=== PATIENT | female | born 1935 | race Caucasian/White ===

== ENCOUNTER 2017-04-24 21:52 | Inpatient (IN) ==
[2017-04-24] MEDS ORDERED: HYDROmorphone 2 MG/1 ML VIAL IV STA (22:18)
[2017-04-24] MEDS ORDERED: ONDANSETRON 4 MG/2 ML VIAL ONE (22:18)
[2017-04-24] MEDS ORDERED: ONDANSETRON 4 MG/2 ML VIAL IV STA (22:18)
[2017-04-24] MEDS ORDERED: HYDROmorphone 2 MG/1 ML VIAL ONE (22:18)
--- NOTE | 2017-04-24 22:32 | Emergency Department Note ---
ICathryn Brittany, am scribing for, and in the presence of, Bessy Monreal DO 22: 26. IRah Debra, DO, personally performed the services described in this documentation, ascribed by Hilda Lockett in my presence, and it is both accurate and complete . Arrival - Arrival Chief Complaint: Fall Stated Complaint: FALL ED Nursing Triage Note: C/C fall-right hip and femur pain. Shortening and rotation of right leg noted. Pt brought in by [facility] Mode of Arrival: Stretcher Limitations: No Limitations Source: Patient - History of Present Illness HPI Narrative: This is an 81 y/o white female, who presents to the ED with c/o right hip/femur pain S/P fall which happened 1.5 hours IMPORT COORDINATION AND PRODUCTION HEAD. She notes she slipped on a shoe, tripping over her [id number]. She now complains of right hip and femur pain. She denies hitting any other body part. Pt has no other complaints/ pain in the ED at this time. Pt has a PMHx of Dyslipidemia, CHF, CAD, HTN, and KS. Pt has had a cardiac cath, cholecystectomy, orthopedic surgery, and hysterctomy. Pt denies a family medical Hx. Pt denies a social Hx. Onset (ago): hour(s) (1.5 hours IMPORT COORDINATION AND PRODUCTION HEAD) Consistency: constant Severity: moderate Allergies/Adverse Reactions: Allergies Allergy/AdvReac Type Severity Reaction Status Date / Time No Known Allergies Allergy Unverified 04/24/17 22:03 Home Medications: Home Medications Medication Instructions Recorded Confirmed Type Aspirin 81 mg PO 04/24/17 History Atenolol [Tenormin] 25 mg PO DAILY 04/24/17 04/24/17 History Ezetimibe [Zetia] 10 mg PO DAILY 04/24/17 04/24/17 History Furosemide Tab [Lasix Tab] 20 mg PO DAILY 04/24/17 04/24/17 History Montelukast Tab [Singulair Tab] 10 mg PO DAILY 04/24/17 04/24/17 History Nitroglycerin [Nitroglycerin SL 0.4 mg SL PRN 04/24/17 History Tab] Omeprazole 20 mg PO DAILY 04/24/17 04/24/17 History Ursodiol [Actigall] 300 mg PO BID 04/24/17 04/24/17 History Review of System - Review of System 12 point system: reviewed and no additional remarkable complaints except as stated - Review of System Review of Systems: Fall Musculoskeletal: Present: leg pain (Right femur pain ), other (Right hip pain ) Medical,Surgical,& Family Hx - Medical History Cardio: History of: CHF, CAD, Hypertension, KS (Stent) Endocrine: History of: Dyslipidemia - Surgical History Cardiac Surgeries: Sugical HX of: Cardiac Catheterization Abdominal Surgeries: Surgical HX of: Cholecystectomy Reproductive Surgeries: Surgical HX of;: Hysterectomy Orthopedic Surgeries: Surgical HX of;: Orthopedic Surgery (Bilat Knee replacement) - Social History Smoking Status: Never smoker Frequency of Alcohol Use: None Type of Drug Use: None Exam Vital Signs: Vital Signs Temperature 98.3 F 04/24/17 21:54 Pulse Rate 59 L 04/24/17 21:54 Respiratory Rate 18 04/24/17 21:54 Blood Pressure 167/68 04/24/17 21:54 O2 Sat by Pulse Oximetry 100 04/24/17 21:54 - General General appearance: alert, in distress (Pt is uncomfortable ) - Head Head exam: Present: atraumatic, normocephalic, normal inspection - Eye Eye exam: Present: normal appearance, PERRL, EOMI. Absent: nystagmus - ENT ENT exam: Present: normal exam, mucous membranes moist - Neck Neck exam: Present: normal inspection, full ROM, trachea midline. Absent: tenderness - Chest Chest inspection: Present: normal inspection, symmetric chest wall rise. Absent : tenderness - Respiratory Respiratory exam: Present: normal lung sounds bilaterally. Absent: respiratory distress - Cardiovascular Cardiovascular exam: Present: regular rate, normal rhythm, normal heart sounds. Absent: murmur, rubs, gallop, clicks - Abdominal Exam Abdominal exam: Present: soft, normal bowel sounds. Absent: distention, tenderness, guarding, rebound, rigidity - Rectal Exam Rectal exam: Present: deferred - Extremities Exam Extremities exam: Present: tenderness (Right hip TTP), normal capillary refill, other (There is shortening and rotation of the right leg) - Back Exam Back exam: Present: normal inspection, full ROM. Absent: tenderness, muscle spasm - Neurological Exam Neurological exam: Present: alert, oriented X3, CN II-XII intact. Absent: motor sensory deficit - Psychiatric Psychiatric exam: Present: normal affect, normal mood. Absent: depressed, agitated, anxious, flat affect, manic - Skin Skin exam: Present: warm, dry, intact, normal color. Absent: rash, cyanosis, diaphoresis, erythema, pallor, mottled Course Course Narrative: Spoke with Dr. Dominguez orthopedic surgeon on-call, he will see the patient tomorrow. Spoke with hospitalist he will admit the patient. Due to abnormal chest x-ray we will scan the chest. Results - Labs CBC & BMP: 04/24/17 22:29 04/24/17 22:29 Lab Results: I have reviewed the patients labs - EKG EKG results: interpreted by ALEXANDRO, no acute changes - Diagnostic Findings Procedure: Chest x-ray: image reviewed by me (abnormal , mass noted on the right. ) Disposition Clinical Impression: Fractured hip Case discussed with: patient, patient's family Disposition: Still a Patient Condition: Stable Time of Disposition: 00:02
--- NOTE | 2017-04-24 22:41 | EKG Report ---
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
[2017-04-24 22:45] LABS: Basophils % 0.6 % (0.0-0.8); Eosinophils # 0.1 10*3/uL (0.0-0.87); Eosinophils % 1.9 % (0.00-10.9); Hematocrit 28.1 VOL% (35.7-47.0); Hemoglobin 8.4 GM/DL (12.0-16.0); Immature Granulocytes % 0.8 %; Immature Granulocytes Absolute 0.04 #; Lymphocytes % 18.5 % (21.3-54.2); Mean Corpuscular HGB Conc 29.9 GM/DL (32-36); Mean Corpuscular Hemoglobin 23 PG (27-34); Mean Corpuscular Volume 77.2 FL (87-102); Mean Platelet Volume 12.3 FL (9.6-12.0); Monocytes # 0.5 10*3/uL (0.11-0.8); Monocytes % 10.4 % (1.7-12.7); Neutrophils # 3.5 10*3/uL (1.4-7.4); Neutrophils % 67.8 % (38.7-73.9); Red Blood Count 3.64 MC/CUMM (3.8-5.5); Red Cell Distribution Width 16.9 % (9.3-17.3); White Blood Count 5.2 T/CUMM (4-12)
[2017-04-24 22:48] LABS: Platelet Count 76 T/CUMM (130-400)
[2017-04-24 23:02] LABS: Hypochromasia Slight
[2017-04-24 23:03] LABS: Albumin 2.7 G/DL (3.4-5.0); Bilirubin,Total 0.4 MG/DL (0.2-1.0); Osmolality,Calculated 285.3 MOS/KG (273-304); Platelet Estimate Decreased; Polychromasia Slight; Potassium 4.3 MMOL/L (3.5-5.1); Total Protein 6.6 G/DL (6.4-8.3)
[2017-04-24 23:10] LABS: Apearance,Urine CLEAR (Clear); Bacteria,Urine Occasional /HPF (Few); Bilirubin,Urine Negative (Negative); Blood, Urine Negative (Negative); Calcium 8.1 MG/DL (8.5-10.1); Glucose,Urine (UA) Negative (Negative); Granular Casts,Urine 1 /LPF (0-1); Hyaline Casts,Urine 15 /LPF (0-3); Ketones,Urine Negative (Negative); Mucus,Urine Occasional /LPF (Occasional); Nitrite,Urine Negative (Negative); Protein,Urine Negative; RBC,Urine 1 /HPF (0-4); Squamous Epithelial Cell,Urine Occasional /HPF (0-10); Urine Color Yellow (Yellow); Urine Specific Gravity 1.019 (1.001-1.035); WBC,Urine <1 /HPF (0-6)
--- NOTE | 2017-04-25 00:23 | Hospitalist History & Physical ---
Addendum entered and electronically signed by Codey Patterson NP 04/25/17 01:24: Patient will need follow up with Pulmonary Original Note: Assessment and Plan (1) Fractured hip Status: Acute Current Visit: Yes (2) CAP (community acquired pneumonia) Status: Acute Current Visit: Yes (3) Hypertension, essential Status: Chronic Current Visit: Yes (4) Microcytic anemia Status: Acute Current Visit: Yes (5) CAD (coronary artery disease) Status: Chronic Assessment and plan: 1. Admit to Cardiac monitored bed. Orthopedics consulted with plans for evaluation in am. Prn pain medications Dilaudid. Fall precautions. Routine VS monitoring. NPO after midnight for possible surgery in am. 2. CT scan revealed consolidation in right lower lobe. There have been no signs of PNA, denies cough, afebrile no, chills, no leukocytosis noted however based on the CT scan, the patient will need antibiotics will add Levaquin and repeat of CT scan after antibiotic therapy in several weeks. Blood cultures x 2. Oxygen to maintain O2 sats greater than 92%. Duo nebs as needed. 3. Continue home cardiac medications including antihypertensives, antiplatelet therapy, pain management, patient does have hx of UT with stents, continue ASA and Plavix, Murmur audible upon assessment. continue cardiac monitoring. Monitor H&H will transfuse for HGB less than 7. Strict I&O. 4.Protonix for PUD px and SCD's for DVT px. Will hold on lovenox due to possible surgery in am. Current Visit: Yes History of Present Illness Chief complaint: s/p fall and right hip pain. History of present illness: Ms. Munson is a 81 year old female with past medical history significant for CHF, CAD, HTN, UT with stent that presented to the ED by ambulance after tripping over a shoe and her grand daughter resulting in a falling. The onset of hip pain was around 20:30 today it was acute. The pain has been constant since her fall rating a 10/10 initially now moderate and described as aching in nature, 7/ 10 after receiving several doses of pain medication. The patient denies, syncope , arrhythmias, palpitations, SOB, cough, fever, chills, wheezing, Chest pain, nausea, vomiting, abdominal pain or melena. Chest xray was abnormal revealing a consolidation/mass of the right mainstem and right lower lobe with possible infiltrates, Xray of the hip revealing an obvious fracture. EKG revealed ST with left ventricular hypertrophy, no st elevation. Labs revealed no leukocytosis, microcytic anemia, mild elevation of AST and hyperchloremia. The patient is being admitted to Hospitalist service with cardiac monitoring with Orthopedic consult. Home Medications Medication Instructions Recorded Confirmed Type Aspirin 81 mg PO 04/24/17 History Atenolol [Tenormin] 25 mg PO DAILY 04/24/17 04/24/17 History Ezetimibe [Zetia] 10 mg PO DAILY 04/24/17 04/24/17 History Furosemide Tab [Lasix Tab] 20 mg PO DAILY 04/24/17 04/24/17 History Montelukast Tab [Singulair Tab] 10 mg PO DAILY 04/24/17 04/24/17 History Nitroglycerin [Nitroglycerin SL 0.4 mg SL PRN 04/24/17 History Tab] Omeprazole 20 mg PO DAILY 04/24/17 04/24/17 History Ursodiol [Actigall] 300 mg PO BID 04/24/17 04/24/17 History Allergies Allergy/AdvReac Type Severity Reaction Status Date / Time No Known Allergies Allergy Unverified 04/24/17 22:03 Medical,Surgical,& Family Hx - Medical History Cardio: History of: CHF, CAD, Hypertension, [place] (Stent) Psychological: No history of: Anxiety Disorders, Depression, Violent Behavior Neurology: No history of: Cerebrovascular Accident, TIA, Neurological Problems HEENT: History of: Eye Problem (wears glasses) Endocrine: History of: Dyslipidemia - Surgical History Cardiac Surgeries: Sugical HX of: Cardiac Catheterization Abdominal Surgeries: Surgical HX of: Cholecystectomy Reproductive Surgeries: Surgical HX of;: Hysterectomy Orthopedic Surgeries: Surgical HX of;: Orthopedic Surgery (Bilat Knee replacement) - Family History Family History: Reports;: Family Cancer, Family Diabetes, Family Heart Disease, Family Hypertension - Social History Smoking Status: Never smoker Frequency of Alcohol Use: None Type of Drug Use: None Lives With:: Children Functional capacity: independent ambulation - Constitutional Constitutional: Absent: daytime sleepiness - EENT Eyes: Present: as per HPI Nose, mouth and throat: Absent: hoarseness, sore throat - Cardiovascular Cardiovascular: Present: edema. Absent: chest pain at rest, chest pain with activity, diaphoresis, dyspnea, palpitations - Respiratory Respiratory: Absent: cough, dyspnea, hemoptysis, pain on inspiration - Genitourinary Genitourinary: Absent: dysuria, urinary frequency, urinary hesitancy, urinary incontinence - Musculoskeletal Musculoskeletal: Present: other (positive right hip pain, femur pain and tammy knee replacements ) - Neurological Neurological: Absent: disequilibrium, dizziness - Psychiatric Psychiatric: Present: visual hallucinations. Absent: anxiety, auditory hallucinations, depression - Hematologic/Lymphatic Hematologic/Lymphatic: Absent: easy bleeding Exam - Constitutional Vitals: Period Temp Pulse Resp BP Sys/Vega Pulse Ox Last 24 Hr 98.2 F-98.3 F 59-59 18-18 162-167/68-80 100 General appearance: over weight - Head Head exam: Present: normal inspection - Eye Eye exam: Present: EOMI Pupils: Present: RAQUEL, normal accommodation - ENT ENT exam: Present: normal exam - Neck Neck exam: Present: normal inspection - Respiratory Respiratory exam: Present: clear to auscultation bilaterally - Cardiovascular Cardiovascular exam: Present: regular rate and rhythm, other - GI/Abdominal GI/Abdominal exam: Present: normal bowel sounds. Absent: tenderness - Extremities Exam Extremities exam: Present: normal capillary refill, edema, other (right leg shortened and turned inward.) - Back Exam Back exam: Present: normal inspection - Neurological Exam Neurological exam: Present: oriented X3 - Psychiatric Psychiatric exam: Present: normal affect. Absent: depressed - Skin Skin exam: Present: normal color, dry, intact Results - Labs CBC & BMP: 04/24/17 22:29 04/24/17 22:29 - Diagnostic Findings Procedure: Chest x-ray: image reviewed by me (two areas of consolidation/mass like and possible infiltrates. ), X-ray: image reviewed by me (right hip fracture) Sepsis - Physical Exam Cardiovascular exam: regular rate and rhythm Skin exam: normal color
[2017-04-25] MEDS ORDERED: GLUCAGON 1 MG VIAL IM PRN ×2 (01:03→12:19)
[2017-04-25] MEDS ORDERED: DEXTROSE 50% 25 GM/50 ML SYRINGE IV PRN ×2 (01:03→12:19)
[2017-04-25] MEDS ORDERED: ALBUTEROL/IPRATROPIUM 3 ML NEB RESP TX PRN (01:09)
[2017-04-25] MEDS ORDERED: DOCUSATE SODIUM 100 MG CAPSULE PO PRN (01:09)
[2017-04-25] MEDS ORDERED: HYDROmorphone 2 MG/1 ML VIAL IV PRN ×3 (01:20→13:01)
[2017-04-25] MEDS ORDERED: ONDANSETRON 4 MG/2 ML VIAL ONE ×2 (01:32→12:47)
[2017-04-25] MEDS ORDERED: HYDROmorphone 2 MG/1 ML VIAL IV ONE (01:35)
[2017-04-25] MEDS ORDERED: ONDANSETRON 4 MG/2 ML VIAL IV ONE (01:36)
[2017-04-25] MEDS: LEVOFLOXACIN INJ 750 MG in PREMIX 1 EACH IV SCH (03:41)
[2017-04-25] MEDS: INSULIN LISPRO 100 UNIT/ML SUBCUT SCH ×2 (06:20→12:10)
[2017-04-25] MEDS ORDERED: ceFAZolin 2,000 MG in PREMIX 1 EACH IV ONE (06:33)
--- NOTE | 2017-04-25 06:48 | XRay Report ---
XR femur RT, XR hip 2v w pelvis RT Indication: Pain after falling injury Comparison: None available Findings: There is a comminuted the intratrochanteric fracture of the right hip with distraction and varus angulation. No other acute fracture seen. Knee arthroplasty appears within normal limits. Impression: Femur fracture as described above. PROCEDURE INTERPRETED AT [facility] DEPARTMENT OF RADIOLOGY Final Report Signed by: Dr. Sanket Baker
--- NOTE | 2017-04-25 06:49 | XRay Report ---
XR chest 1V portable Indication: Respiratory preoperative evaluation Comparison: 22 February 2015 Findings: The heart and mediastinum are stable in size and configuration. The pulmonary vascularity is increased with bilateral increased interstitial lung density. No other lung infiltrates, effusions, pneumothorax or other abnormality is demonstrated. Impression: Findings suggest cardiac decompensation. PROCEDURE INTERPRETED AT [facility] DEPARTMENT OF RADIOLOGY Final Report Signed by: Dr. Sanket Baker
[2017-04-25 07:11] LABS: Basophils % 0.5 % (0.0-0.8); Hematocrit 29.7 VOL% (35.7-47.0); Hemoglobin 8.7 GM/DL (12.0-16.0); Immature Granulocytes % 0.5 %; Immature Granulocytes Absolute 0.03 #; Lymphocytes # 0.6 10*3/uL (1.4-4.0); Lymphocytes % 10.6 % (21.3-54.2); Mean Corpuscular HGB Conc 29.3 GM/DL (32-36); Mean Corpuscular Hemoglobin 23 PG (27-34); Monocytes # 0.6 10*3/uL (0.11-0.8); Monocytes % 10.5 % (1.7-12.7); Neutrophils # 4.7 10*3/uL (1.4-7.4); Neutrophils % 77.9 % (38.7-73.9); Red Blood Count 3.81 MC/CUMM (3.8-5.5); Red Cell Distribution Width 16.9 % (9.3-17.3)
[2017-04-25 07:16] LABS: Platelet Count 88 T/CUMM (130-400)
--- NOTE | 2017-04-25 07:16 | Orthopedic Consult Note ---
History of Present Illness Chief complaint: Right hip pain History of present illness: Ms. Munson is a 81 year old female who fell yesterday after tripping over her great granddaughter shoes. She was carrying meat to the refrigerator. She sustained a right displaced intertrochanteric hip fracture. She denies any other injury. She denies any loss of consciousness, chest pain, shortness of breath, weakness, etc. The patient is an independent ambulator. Patient has a history of bilateral total knee replacements which were done approximately 3 years ago by an orthopedist in [place]. The patient has had a CT scan of the chest which demonstrates interstitial fibrosis and a inflammatory nodule in the right lower lobe. She has been placed on antibiotics for a presumptive pneumonia. Home Medications Medication Instructions Recorded Confirmed Type Aspirin 81 mg PO DAILY 04/24/17 04/25/17 History Atenolol [Tenormin] 25 mg PO DAILY 04/24/17 04/25/17 History Ezetimibe [Zetia] 10 mg PO DAILY 04/24/17 04/25/17 History Furosemide Tab [Lasix Tab] 20 mg PO DAILY 04/24/17 04/25/17 History Montelukast Tab [Singulair Tab] 10 mg PO DAILY 04/24/17 04/25/17 History Nitroglycerin [Nitroglycerin SL 0.4 mg SL PRN 04/24/17 History Tab] Omeprazole 20 mg PO DAILY 04/24/17 04/25/17 History Ursodiol [Actigall] 300 mg PO BID 04/24/17 04/25/17 History Allergies Allergy/AdvReac Type Severity Reaction Status Date / Time No Known Allergies Allergy Unverified 04/24/17 22:03 12 point system: reviewed and no additional remarkable complaints except as stated Medical,Surgical,& Family Hx - Medical History Cardio: History of: CHF, CAD, Hypertension, PR (Stent) Psychological: No history of: Anxiety Disorders, Depression, Violent Behavior Neurology: No history of: Cerebrovascular Accident, TIA, Neurological Problems HEENT: History of: Eye Problem (wears glasses) Endocrine: History of: Dyslipidemia - Surgical History Cardiac Surgeries: Sugical HX of: Cardiac Catheterization Abdominal Surgeries: Surgical HX of: Cholecystectomy Reproductive Surgeries: Surgical HX of;: Hysterectomy Orthopedic Surgeries: Surgical HX of;: Orthopedic Surgery (Bilat Knee replacement) - Family History Family History: Reports;: Family Cancer, Family Diabetes, Family Heart Disease, Family Hypertension - Social History Smoking Status: Never smoker Frequency of Alcohol Use: None Type of Drug Use: None Exam - Constitutional Vitals: Period Temp Pulse Resp BP Sys/Vega Pulse Ox Last 24 Hr 97.1 F-98.3 F 59-81 18-18 94-167/58-80 95-100 Alert and oriented. Bilateral upper extremities and left lower extremity without deformity. Right lower extremity is shortened and externally rotated. 2+ dorsalis pedis pulse. Capillary refill is less than 2 seconds. Sensations intact to her first dorsal webspace, plantar and dorsal aspects of her foot. The patient can flex and extend her toes and ankles. Radiographs pelvis, hip and femur were reviewed. They demonstrate a displaced three-part intertrochanteric hip fracture. She has well fixed right total knee replacement. Impression: Right intertrochanteric hip fracture, displaced Plan: I have recommended open reduction fixation of her right hip. Risks, benefits and postoperative course were discussed. Risks include but not limited to infection, bleeding, anesthesia, thromboembolic event, , failure of fixation, need for further operation, etc. Unfortunately, I am going to be unavailable. I have asked Dr. Efren Woods to assume her care. Results - Labs CBC & BMP: 04/24/17 22:29 04/24/17 22:29
[2017-04-25 07:35] LABS: Hypochromasia 1+; Microcytosis 1+; Platelet Estimate Decreased; Tear Drop Cells Slight
[2017-04-25 07:44] LABS: % Iron Saturation 8.1 % (18-50); Ferritin 15.3 ng/ml (8-252)
[2017-04-25 07:46] LABS: Folate > 24.0 NG/ML (5.4-24.0); Vitamin B12 700 PG/ML (211-911)
[2017-04-25 07:50] LABS: Calcium 8.6 MG/DL (8.5-10.1); Osmolality,Calculated 282.7 MOS/KG (273-304); Potassium 4.9 MMOL/L (3.5-5.1); Risk Ratio 1.92; Thyroid Stimulating Hormone 13.6 uIU/ml (0.358-3.74)
--- NOTE | 2017-04-25 08:02 | CT Report ---
CT chest w con Indication: Chest mass Comparison: Chest x-ray 24 April 2017 Technique: Axial CT imaging of the chest was done at 3 mm intervals with intravenous contrast. Contrast dose was 80 cc Omnipaque 350. Findings: There is a prominent interstitial pulmonary densities in both lower lungs. The pulmonary vessel caliber are slightly increased. There is a nodular area of ill-defined airspace density in the right lower lobe measuring up to 1.1 cm in size. Remaining lungs show no evidence of infiltrates or airspace disease. No nodule or mass is identified. No effusion or pneumothorax is seen. The heart, mediastinum and great vessels appear within normal limits. No other abnormality is identified. Impression: Prominent pulmonary vascularity and interstitial pulmonary densities could indicate cardiac decompensation. Small amount of nodular airspace density in the right lower lobe adjacent to the major fissure 1.1 cm in size, could indicate inflammatory process. Follow-up CT after treatment is recommended. This CT exam was performed using one or more the following dose reduction techniques: Automated exposure control, adjustment of the MA and/or KV according to patient size, or use of iterative reconstruction technique. PROCEDURE INTERPRETED AT [facility] DEPARTMENT OF RADIOLOGY Final Report Signed by: Dr. Sanket Baker
--- NOTE | 2017-04-25 08:46 | Orthopedic Progress Note ---
Orthopedics - Subjective Interval history: Patient seen in Dr. Dominguez's absence reportedly ambulatory with displaced inotrope fracture of the right hip I discussed with she and her family present the diagnosis and treatment recommendations including need for operative stabilization will plan on internal fixation later today of her right hip all questions were answered she appears understand and agrees with the plan. Exam - Constitutional Vitals: Period Temp Pulse Resp BP Sys/Vega Pulse Ox Last 24 Hr 96.9 F-98.3 F 59-81 18-18 94-167/58-80 95-100 Results - Labs CBC & BMP: 04/25/17 06:56 04/25/17 06:56
[2017-04-25] MEDS: ATENOLOL 25 MG TABLET PO SCH (08:51)
[2017-04-25] MEDS: PANTOPRAZOLE 40 MG TABLET PO SCH (09:05)
[2017-04-25] MEDS: EZETIMIBE 10 MG TABLET PO SCH (09:05)
[2017-04-25] MEDS: FUROSEMIDE 20 MG TABLET PO SCH (09:05)
[2017-04-25] MEDS: MONTELUKAST 10 MG TABLET PO SCH (09:05)
[2017-04-25] MEDS ORDERED: PROMETHAZINE 25 MG/1 ML VIAL IM PRN (12:21)
[2017-04-25] MEDS ORDERED: LACTULOSE 20 GM/30 ML UDCUP PO PRN (12:21)
[2017-04-25] MEDS ORDERED: BISACODYL 10 MG SUPP RECTAL PRN (12:21)
--- NOTE | 2017-04-25 12:41 | Anesthesia Post-Op ---
Anesthesia Post OP - Post Ansesthetic Evaluation Patient seen in post op: Yes Resp: within normal limits CV: within normal limits Mental: within normal limits Temp: within normal limits [id number]: within normal limits Nausea and Vomiting: within normal limits Pain: within normal limits
[2017-04-25] MEDS ORDERED: fentaNYL 100 MCG/2 ML VIAL ONE (12:46)
[2017-04-25] MEDS ORDERED: PROPOFOL 200 MG/20 ML VIAL IV ONE (12:46)
[2017-04-25] MEDS ORDERED: DEXAMETHASONE 10 MG/1 ML VIAL ONE (12:46)
[2017-04-25] MEDS ORDERED: SEVOFLURANE 1 UNIT/15 MINUTE INH ONE (12:46)
--- NOTE | 2017-04-25 12:46 | Hospitalist Progress Note ---
Assessment and Plan (1) Closed right hip fracture Status: Acute Assessment and plan: Orthopedics consult noted. Operative intervention planned for today. Current Visit: Yes Qualifiers: Encounter type: initial encounter Qualified Code(s): S72.001A - Fracture of unspecified part of neck of right femur, initial encounter for closed fracture (2) Hypertension, essential Status: Chronic Current Visit: Yes (3) CAD (coronary artery disease) Status: Chronic Current Visit: Yes (4) Microcytic anemia Status: Chronic Current Visit: Yes (5) Abnormal chest x-ray Status: Acute Assessment and plan: No evidence of pneumonia on CAT scan. CAT scan report shows: Prominent pulmonary vascularity and interstitial pulmonary densities could indicate cardiac decompensation. Small amount of nodular airspace density in the right lower lobe adjacent to the major fissure 1.1 cm in size, could indicate inflammatory process. Follow-up CT after treatment is recommended. Current Visit: Yes Hospitalist: Subjective Interval history: Patient seen and examined. No acute events overnight. Case discussed with nursing staff. Labs reviewed. Operative intervention planned for today. Exam - Constitutional Vitals: Period Temp Pulse Resp BP Sys/Vega Pulse Ox Last 24 Hr 96.9 F-98.3 F 59-81 18-18 94-167/58-80 95-100 Exam: Constitutional System: No distress. No tremulousness. Head: Normocephalic, atraumatic. Ears, Nose and Throat System: No pain or tenderness. No epistaxis or discharge Eyes System: Pupils equal, round, and reactive. Extraocular muscles intact. Neck: Supple, without adenopathy, No jugular venous distention. No thyromegaly, neck mass, or prior surgery apparent. Respiratory System: Chest clear to auscultation. Cardiovascular System: Heart with regular rate and rhythm. No murmur. GI System: Abdomen soft, nontender. Normo active bowel sounds present. Musculoskeletal System: limbs with no pedal edema. Full distal pulses. Normal capillary refill. External rotation of the right lower extremity noted Neurological System: No discernable sensory deficit. No aphasia Psychiatric System: Conversation is rational Results - Labs CBC & BMP: 04/25/17 06:56 04/25/17 06:56 Lab Results: I have reviewed the past 24 hour labs Quality Measures - VTE Contraindication to Pharmacological VTE Prophylaxis: Extremities with Hemorrhage
[2017-04-25] MEDS ORDERED: SUCCINYLCHOLINE 200 MG/10 ML VIAL ONE (12:47)
[2017-04-25] MEDS ORDERED: SODIUM CHLORIDE 0.9% 100 ML IV ONE (12:47)
[2017-04-25] MEDS ORDERED: PHENYLEPHRINE 50 MG/5 ML VIAL ONE (12:47)
[2017-04-25 12:49] LABS: Basophils # 0.1 10*3/uL (0.0-0.2); Basophils % 0.6 % (0.0-0.8); Hemoglobin 8.2 GM/DL (12.0-16.0); Immature Granulocytes % 0.7 %; Immature Granulocytes Absolute 0.06 #; Lymphocytes # 1.5 10*3/uL (1.4-4.0); Lymphocytes % 16.3 % (21.3-54.2); Mean Corpuscular HGB Conc 29.3 GM/DL (32-36); Mean Corpuscular Hemoglobin 23 PG (27-34); Mean Corpuscular Volume 78.7 FL (87-102); Mean Platelet Volume 12.1 FL (9.6-12.0); Monocytes # 1.1 10*3/uL (0.11-0.8); Monocytes % 12.3 % (1.7-12.7); Neutrophils # 6.3 10*3/uL (1.4-7.4); Neutrophils % 70.1 % (38.7-73.9); Red Blood Count 3.56 MC/CUMM (3.8-5.5)
[2017-04-25 12:50] LABS: Platelet Count 109 T/CUMM (130-400); White Blood Count 8.9 T/CUMM (4-12)
--- NOTE | 2017-04-25 12:56 | XRay Report ---
History: ORIF right hip Date: 04/25/2017 Study: 2 views right hip performed in surgery Comparison exam: 04/24/2017 Compression screw and plate stabilize the intertrochanteric fracture right hip with relatively good alignment and positioning. 39.6 seconds fluoroscopy time was utilized. 4 fluoroscopic images were captured and archived. Impression: Relatively good alignment and positioning of the intertrochanteric fracture right hip following ORIF PROCEDURE INTERPRETED AT [facility] DEPARTMENT OF RADIOLOGY Final Report Signed by: Dr. Debora Marcial
[2017-04-25] MEDS ORDERED: ONDANSETRON 4 MG/2 ML VIAL IV PRN (13:01)
[2017-04-25] MEDS ORDERED: LACTATED RINGERS 1,000 ML IV SCH (13:30)
[2017-04-25] MEDS: INSULIN REGULAR 100 UNIT/ML SUBCUT SCH ×2 (16:06→21:46)
[2017-04-25] MEDS ORDERED: SODIUM CHLORIDE 0.9% 250 ML IV PRN (17:55)
--- NOTE | 2017-04-25 17:55 | Orthopedic Progress Note ---
Orthopedics - Subjective Interval history: Comfortable postop discussed operative findings and plan going forward for PT. Hemoglobin is 8.T postoperatively I expected to be at least in the sevens tomorrow given intraoperative blood loss. I discussed with her and recommended 2 units of PRBC slowly through the evening related to her perioperative blood loss anemia will check her H&H in the a.m. she appears to understand and agrees Exam - Constitutional Vitals: Period Temp Pulse Resp BP Sys/Vega Pulse Ox Last 24 Hr 96.9 F-99.5 F 59-85 16-22 90-167/42-80 95-100 Results - Labs CBC & BMP: 04/25/17 12:43 04/25/17 06:56 Quality Measures - VTE Contraindication to Pharmacological VTE Prophylaxis: Extremities with Hemorrhage
[2017-04-25 19:39] LABS: Anisocytosis 1+; Hypochromasia Slight; Poikilocytosis 1+; Tear Drop Cells Few
[2017-04-25 19:40] LABS: Burr Cells Few; Platelet Estimate Decreased
[2017-04-26] MEDS: LEVOFLOXACIN INJ 750 MG in PREMIX 1 EACH IV SCH (05:18)
[2017-04-26 07:11] LABS: Basophils % 0.3 % (0.0-0.8); Hematocrit 27.8 VOL% (35.7-47.0); Hemoglobin 8.7 GM/DL (12.0-16.0); Immature Granulocytes % 0.5 %; Immature Granulocytes Absolute 0.05 #; Lymphocytes # 1.6 10*3/uL (1.4-4.0); Lymphocytes % 17.6 % (21.3-54.2); Mean Corpuscular HGB Conc 31.3 GM/DL (32-36); Mean Corpuscular Hemoglobin 25 PG (27-34); Mean Corpuscular Volume 79.4 FL (87-102); Mean Platelet Volume 11.7 FL (9.6-12.0); Monocytes # 1.2 10*3/uL (0.11-0.8); Monocytes % 13.4 % (1.7-12.7); Neutrophils # 6.3 10*3/uL (1.4-7.4); Neutrophils % 68.2 % (38.7-73.9); Red Cell Distribution Width 17.2 % (9.3-17.3); White Blood Count 9.2 T/CUMM (4-12)
[2017-04-26 07:13] LABS: Platelet Count 93 T/CUMM (130-400)
[2017-04-26 07:35] LABS: Giant Platelets Few; Hypochromasia 1+; Microcytosis Slight; Ovalocytes Slight; Platelet Estimate Decreased
[2017-04-26] MEDS: INSULIN REGULAR 100 UNIT/ML SUBCUT SCH ×4 (07:35→21:05)
[2017-04-26] MEDS: FUROSEMIDE 20 MG TABLET PO SCH (08:39)
[2017-04-26] MEDS: ASPIRIN CHEW 81 MG TABLET PO SCH (08:39)
[2017-04-26] MEDS: ATENOLOL 25 MG TABLET PO SCH (08:39)
[2017-04-26] MEDS: PANTOPRAZOLE 40 MG TABLET PO SCH (08:39)
[2017-04-26] MEDS: MONTELUKAST 10 MG TABLET PO SCH (08:39)
[2017-04-26] MEDS: EZETIMIBE 10 MG TABLET PO SCH (08:39)
[2017-04-26] MEDS ORDERED: BENZOCAINE/MENTHOL LOZENGE 18/BOX PO PRN (12:20)
--- NOTE | 2017-04-26 12:28 | Hospitalist Progress Note ---
Hospitalist: Subjective Interval history: Patient states that she has pain. Pain medications are helpful. She states that she has trouble swallowing and contributes it to the recent ET tube. She denies any SOB or CP. Exam - Constitutional Vitals: Period Temp Pulse Resp BP Sys/Vega Pulse Ox Last 24 Hr 96.6 F-99.5 F 64-85 16-22 90-129/42-79 92-100 General appearance: no acute distress, morbidly obese - Head Head exam: Present: normal inspection - Eye Eye exam: Present: EOMI Pupils: Present: RAQUEL - Respiratory Respiratory exam: Present: clear to auscultation bilaterally. Absent: rales, rhonchi, wheezes - Cardiovascular Cardiovascular exam: Present: regular rate and rhythm - GI/Abdominal GI/Abdominal exam: Present: normal bowel sounds, soft. Absent: tenderness - Extremities Exam Extremities exam: Absent: edema (s/p right hip fracture; bandages in place) - Neurological Exam Neurological exam: Present: alert, oriented X3 - Psychiatric Psychiatric exam: Present: normal affect, normal mood - Skin Skin exam: Present: normal color, warm Results - Labs CBC & BMP: 04/26/17 06:27 04/25/17 06:56 - Impressions Active issues: 1. Close right hip fracture s/p surgery 2. HTN: blood pressures are on the low side 3. ASCAD: stable; on asa and statin 4. Iron deficiency anemia, ferritin 15.3. 5. Abnormal chest CT: it showed possible cardiac decompensation and nodular airspace density in RLL; f/u CT is needed 6. dysphagia 7. Thrombocytopenia: stable (88-109) Plan: pain control; monitor h/h; monitor bp and give colloid/crystalloid as needed; hold atenolol and lasix; start venofer; will need outpatient GI work up ; f/u chest CT in 3 months; obtain echo; soft diet; consult speech; PT/OT Quality Measures - VTE Contraindication to Pharmacological VTE Prophylaxis: Extremities with Hemorrhage
--- NOTE | 2017-04-26 12:32 | Orthopedic Progress Note ---
Orthopedics - Subjective Interval history: Comfortable hemoglobin 8.7 today did not do very well with PT only up to side of the bed. Most likely will need rehab or swing bed placement early next week will follow H&H check it again in the a.m. Exam - Constitutional Vitals: Period Temp Pulse Resp BP Sys/Vega Pulse Ox Last 24 Hr 96.6 F-99.5 F 64-76 16-22 90-129/42-79 92-100 Results - Labs CBC & BMP: 04/26/17 06:27 04/25/17 06:56 Quality Measures - VTE Contraindication to Pharmacological VTE Prophylaxis: Extremities with Hemorrhage
--- NOTE | 2017-04-26 16:59 | ECHO Report ---
[place], [place] Exam Date: 04/26/2017 13:12 Referring Physician: Technologist: Viviana Schwarz Age: 81 Ht (in): 62 Wt (lb): 210 Gender: F Exam Location: [facility] Echo Indications: LT. hip fracture, pneumonia, HTN, CAD BP: 107 / 59 HR: 70 Rhythm: Sinus Technical Quality: Fair IMPRESSIONS Normal left ventricular cavity size. Mild - moderate concentric left ventricular hypertrophy with diastolic dysfunction. Left ventricular ejection fraction is estimated at 55-60 %. Normal right ventricular size. Normal right atrial size. Moderately increased left atrial size. Mildly thickened mitral valve with mild mitral regurgitation. Mild aortic valve stenosis. Aortic valve area is 1.3 cm. Aortic valve mean gradient is 24 mmHg. Trace to mild aortic valve regurgitation. Morphologically normal tricuspid valve. Trace tricuspid valve regurgitation. Tricuspid regurgitation velocities suggest a PAP of 29.8 mmHg + RAP. Morphologically normal pulmonic valve. No pericardial effusion. Normal size aortic root and proximal ascending aorta. MEASUREMENTS (Male / Female) Normal Values 2D ECHO LV Diastolic Diameter PLAX 3.3 cm 4.2 - 5.9 / 3.9 - 5.3 cm LV Systolic Diameter PLAX 1.8 cm LV Fractional Shortening PLAX 43.4 % IVS Diastolic Thickness 1.3 cm 0.6 - 1.0 / 0.6 - 0.9 cm LVPW Diastolic Thickness 1.2 cm 0.6 - 1.0 / 0.6 - 0.9 cm Aortic Root Diameter 2.5 cm LA Systolic Diameter LX 5.2 cm 3.0 - 4.0 / 2.7 - 3.8 cm DOPPLER TR Peak Velocity 273.0 cm/s TR Peak Gradient 29.8 mmHg FINDINGS Left Ventricle Normal left ventricular cavity size. Mild - moderate concentric left ventricular hypertrophy with diastolic dysfunction. Left ventricular ejection fraction is estimated at 55-60 %. Right Ventricle Normal right ventricular size. Right Atrium Normal right atrial size. Left Atrium Moderately increased left atrial size. Mitral Valve Mildly thickened mitral valve with mild mitral regurgitation. Aortic Valve Mild aortic valve stenosis. Aortic valve area is 1.3 cm. Aortic valve mean gradient is 24 mmHg. Trace to mild aortic valve regurgitation. Tricuspid Valve Morphologically normal tricuspid valve. Trace tricuspid valve regurgitation. Tricuspid regurgitation velocities suggest a PAP of 29.8 mmHg + RAP. Pulmonic Valve Morphologically normal pulmonic valve. Pericardium No pericardial effusion. Aorta Normal size aortic root and proximal ascending aorta. Oneil Cao MD (Electronically Signed) Final Date: 26 April 2017 16:58
--- NOTE | 2017-04-26 17:22 | Case Mgmt Physician Query Form ---
TB Signs and Symptoms Screening ([place]) INSTRUCTIONS: To be completed annually on residents/staff with a significant Tuberculin Skin Test (TST) upon admission/hire or a prior significant TST. To be completed on all staff at hire. Please respond to each listed symptom with an (X) in either the "YES" or "NO" box. Do you currently have any of the following symptoms: YES NO ( ) (x ) A cough If yes, is it: ( ) Productive ( ) Non- productive ( ) ( x) Hemoptysis (spitting up blood) ( ) ( x) Chest pains ( ) (x) Weight Loss ( ) ( x) Fever ( ) (x ) Night Sweats ( ) ( x) Weakness ( ) (x ) Loss of Appetite ( ) (x ) Difficulty Breathing If you answered YES" to any of the above questions, how long have symptoms been present? Comments: If you have any questions, please contact me. Thank you, Kaleigh Baeza RN, Office : [phone] Email : [email or web address]
[2017-04-26] MEDS ORDERED: TUBERCULIN SKIN TEST 0.1 ML SYRINGE INTRADERM ONE (18:00)
[2017-04-27] MEDS: LEVOFLOXACIN INJ 750 MG in PREMIX 1 EACH IV SCH (02:59)
[2017-04-27 06:34] LABS: Basophils % 0.3 % (0.0-0.8); Eosinophils # 0.1 10*3/uL (0.0-0.87); Eosinophils % 0.7 % (0.00-10.9); Hematocrit 25.7 VOL% (35.7-47.0); Hemoglobin 8.1 GM/DL (12.0-16.0); Immature Granulocytes % 0.7 %; Immature Granulocytes Absolute 0.05 #; Lymphocytes # 1.5 10*3/uL (1.4-4.0); Lymphocytes % 20.7 % (21.3-54.2); Mean Corpuscular HGB Conc 31.5 GM/DL (32-36); Mean Corpuscular Hemoglobin 25 PG (27-34); Mean Corpuscular Volume 78.1 FL (87-102); Mean Platelet Volume 11.6 FL (9.6-12.0); Monocytes # 1.1 10*3/uL (0.11-0.8); Monocytes % 15.9 % (1.7-12.7); Neutrophils # 4.4 10*3/uL (1.4-7.4); Neutrophils % 61.7 % (38.7-73.9); Platelet Count 74 T/CUMM (130-400); Red Blood Count 3.29 MC/CUMM (3.8-5.5); Red Cell Distribution Width 17.9 % (9.3-17.3); White Blood Count 7.1 T/CUMM (4-12)
[2017-04-27 07:58] LABS: Eosinophils 1 % (0-10); Hypochromasia 1+; Lymphocytes 11 % (20-55); Platelet Estimate Decreased; Segmented Neutrophils 81 % (50-85); Total Cells Counted 100
[2017-04-27] MEDS: INSULIN REGULAR 100 UNIT/ML SUBCUT SCH ×3 (08:52→18:26)
[2017-04-27] MEDS: ASPIRIN CHEW 81 MG TABLET PO SCH (08:54)
[2017-04-27] MEDS: MONTELUKAST 10 MG TABLET PO SCH (08:54)
[2017-04-27] MEDS: EZETIMIBE 10 MG TABLET PO SCH (08:54)
[2017-04-27] MEDS: PANTOPRAZOLE 40 MG TABLET PO SCH (08:54)
[2017-04-27] MEDS: IRON SUCROSE 200 MG in SODIUM CHLORIDE 0.9% 100 ML IV SCH (09:13)
--- NOTE | 2017-04-27 09:33 | Hospitalist Progress Note ---
Hospitalist: Subjective Interval history: Patient's daughter states that patient participated with PT better today. Pain is controlled. She has been able to eat. Sore throat has improved with lozenges. She has no complaints of SOB or CP. Exam - Constitutional Vitals: Period Temp Pulse Resp BP Sys/Vega Pulse Ox Last 24 Hr 97.3 F-98.4 F 67-72 14-20 97-123/47-67 95-100 General appearance: no acute distress - Head Head exam: Present: normal inspection - Eye Eye exam: Present: EOMI Pupils: Present: RAQUEL - Respiratory Respiratory exam: Present: clear to auscultation bilaterally. Absent: rales, rhonchi, wheezes - Cardiovascular Cardiovascular exam: Present: regular rate and rhythm, systolic murmur - GI/Abdominal GI/Abdominal exam: Present: normal bowel sounds, soft. Absent: distended, mass , tenderness - Extremities Exam Extremities exam: Present: other (s/p right hip fracture; bandages in place). Absent: edema - Neurological Exam Neurological exam: Present: alert, oriented X3 - Psychiatric Psychiatric exam: Present: normal affect, normal mood Results - Labs CBC & BMP: 04/27/17 06:06 04/25/17 06:56 - Impressions Active issues: 1. Closed right hip fracture s/p surgery 2. HTN: blood pressures have improved; atenolol and lasix have been discontinued. 3. ASCAD: stable; on asa and statin 4. Iron deficiency anemia, ferritin 15.3. H/H stable. On venofer 5. Abnormal chest CT: it showed possible cardiac decompensation and nodular airspace density in RLL; f/u CT is needed; echo showed EF of 55-60%; mild- moderate diastolic dysfunction; mild , trace AR, trace TR 6. dysphagia: resolving 7. Thrombocytopenia: stable (88-109) 8. Disposition: rehab Plan: pain control; monitor h/h; monitor bp; start venofer; will need outpatient GI work up; f/u chest CT in 3 months; PT/OT; SW for d/c planning to rehab facility in [facility]. Quality Measures - VTE Contraindication to Pharmacological VTE Prophylaxis: Extremities with Hemorrhage
--- NOTE | 2017-04-27 12:49 | Orthopedic Progress Note ---
Orthopedics - Subjective Interval history: Mrs. Munson is a 81-year-old female postop day #2 following IM nailing right hip fracture performed by Dr. Luis Fernando Schwartz Junior. She is in general doing well at this time. She is alert oriented and cooperative. Hemoglobin is 8.1 and hematocrit 25.7. She is on the hospitalist service and is undergoing physical therapy mobilization with a walker in anticipation of swing bed transfer at [facility] in [place] Saturday or Saturday. Exam - Constitutional Vitals: Period Temp Pulse Resp BP Sys/Vega Pulse Ox Last 24 Hr 97.3 F-98.4 F 67-71 14-20 97-123/47-67 95-100 Results - Labs CBC & BMP: 04/27/17 06:06 04/25/17 06:56 Quality Measures - VTE Contraindication to Pharmacological VTE Prophylaxis: Extremities with Hemorrhage
[2017-04-27] MEDS: MAGNESIUM HYDROXIDE SUSP 30 ML UDCUP PO PRN (21:26)
[2017-04-28] MEDS: INSULIN REGULAR 100 UNIT/ML SUBCUT SCH ×5 (01:18→20:58)
[2017-04-28 06:22] LABS: Basophils % 0.6 % (0.0-0.8); Eosinophils # 0.1 10*3/uL (0.0-0.87); Hemoglobin 7.7 GM/DL (12.0-16.0); Immature Granulocytes % 1.7 %; Immature Granulocytes Absolute 0.12 #; Lymphocytes # 1.1 10*3/uL (1.4-4.0); Lymphocytes % 15.8 % (21.3-54.2); Mean Corpuscular HGB Conc 30.8 GM/DL (32-36); Mean Corpuscular Hemoglobin 24 PG (27-34); Mean Corpuscular Volume 79.1 FL (87-102); Mean Platelet Volume 11.6 FL (9.6-12.0); Monocytes # 1.2 10*3/uL (0.11-0.8); Monocytes % 17.4 % (1.7-12.7); NRBC # 0.04 10*3/uL; Neutrophils # 4.5 10*3/uL (1.4-7.4); Neutrophils % 63.5 % (38.7-73.9); Platelet Count 82 T/CUMM (130-400); Red Blood Count 3.16 MC/CUMM (3.8-5.5); Red Cell Distribution Width 18.6 % (9.3-17.3); White Blood Count 7.1 T/CUMM (4-12)
[2017-04-28 06:51] LABS: Magnesium 2.4 MG/DL (1.8-2.4); Osmolality,Calculated 280.2 MOS/KG (273-304); Potassium 4.9 MMOL/L (3.5-5.1)
[2017-04-28 07:52] LABS: Lymphocytes 14 % (20-55); Nucleated Red Blood Cells 1 (0-5); Platelet Estimate Decreased; Polychromasia Slight; Segmented Neutrophils 75 % (50-85); Target Cells Slight; Total Cells Counted 100
[2017-04-28] MEDS: MONTELUKAST 10 MG TABLET PO SCH (09:11)
[2017-04-28] MEDS: EZETIMIBE 10 MG TABLET PO SCH (09:11)
[2017-04-28] MEDS: IRON SUCROSE 200 MG in SODIUM CHLORIDE 0.9% 100 ML IV SCH (09:13)
[2017-04-28] MEDS: PANTOPRAZOLE 40 MG TABLET PO SCH (09:15)
[2017-04-28] MEDS: ASPIRIN CHEW 81 MG TABLET PO SCH (09:15)
--- NOTE | 2017-04-28 10:28 | Hospitalist Progress Note ---
Assessment and Plan (1) Fractured hip Status: Resolved Assessment and plan: Now status post hip fracture repair which is improving. Awaiting for swing bed transfer. Current Visit: Yes (2) Hypertension, essential Status: Chronic Current Visit: Yes (3) CAD (coronary artery disease) Status: Chronic Assessment and plan: No acute cardiac issues. Patient has been stable. Current Visit: Yes (4) Closed right hip fracture Status: Acute Assessment and plan: Now 3 days status post repair. Current Visit: Yes Qualifiers: Encounter type: initial encounter Qualified Code(s): S72.001A - Fracture of unspecified part of neck of right femur, initial encounter for closed fracture Hospitalist: Subjective Interval history: The patient is resting comfortably. She has been hemodynamically stable. Metabolic have been stable. No shortness of breath or chest pain. At this time awaiting for swing bed transfer to [place]. Exam - Constitutional Vitals: Period Temp Pulse Resp BP Sys/Vega Pulse Ox Last 24 Hr 97.3 F-98.5 F 64-77 14-20 98-141/44-61 95-100 General appearance: no acute distress - Head Head exam: Present: normal inspection - Eye Eye exam: Present: EOMI - Neck Neck exam: Present: normal inspection - Respiratory Respiratory exam: Present: clear to auscultation bilaterally - Cardiovascular Cardiovascular exam: Present: regular rate and rhythm - GI/Abdominal GI/Abdominal exam: Present: normal bowel sounds - Extremities Exam Extremities exam: Present: normal inspection - Back Exam Back exam: Present: normal inspection - Neurological Exam Neurological exam: Present: alert, oriented X3 - Psychiatric Psychiatric exam: Present: normal affect - Skin Skin exam: Present: normal color Results - Labs CBC & BMP: 04/28/17 05:56 04/28/17 05:56 Quality Measures - VTE Contraindication to Pharmacological VTE Prophylaxis: Extremities with Hemorrhage
--- NOTE | 2017-04-28 16:27 | Orthopedic Progress Note ---
Orthopedics - Subjective Interval history: Sandy is an 81-year-old female is postop day #3 following impression nailing left femur fracture. She remains afebrile. Hemoglobin 7.7 and hematocrit 25.0. Is not exhibiting any prostatic changes related to her anemia. She is slowly improving through physical therapy efforts. She sat up in a chair. She is 25% weightbearing and still requiring max assist. Plans on discharge to [facility] swing bed Saturday or Saturday. Dr. Schwartz will resume orthopedic follow-up tomorrow. She is not on iron supplementation (Trinsicon) may be beneficial. Exam - Constitutional Vitals: Period Temp Pulse Resp BP Sys/Vega Pulse Ox Last 24 Hr 97.2 F-98.5 F 69-77 14-20 98-141/44-60 95-100 Results - Labs CBC & BMP: 04/28/17 05:56 04/28/17 05:56 Quality Measures - VTE Contraindication to Pharmacological VTE Prophylaxis: Extremities with Hemorrhage
[2017-04-28] MEDS: MAGNESIUM HYDROXIDE SUSP 30 ML UDCUP PO PRN (20:58)
[2017-04-29] MEDS: INSULIN REGULAR 100 UNIT/ML SUBCUT SCH ×4 (07:30→20:29)
[2017-04-29] MEDS: EZETIMIBE 10 MG TABLET PO SCH (08:19)
[2017-04-29] MEDS: ASPIRIN CHEW 81 MG TABLET PO SCH (08:19)
[2017-04-29] MEDS: MONTELUKAST 10 MG TABLET PO SCH (08:20)
[2017-04-29] MEDS: PANTOPRAZOLE 40 MG TABLET PO SCH (08:20)
[2017-04-29] MEDS: LEVOFLOXACIN INJ 750 MG in PREMIX 1 EACH IV SCH (08:25)
[2017-04-29] MEDS ORDERED: SODIUM CHLORIDE 0.9% 250 ML IV PRN (08:57)
--- NOTE | 2017-04-29 08:59 | Orthopedic Progress Note ---
Orthopedics - Subjective Interval history: Comfortable mild serosanguineous drainage hemoglobin 7.7 yesterday given her age and other comorbidities have recommended 2 more units of PRBC later today she can get up with physical therapy and will get some blood in her this afternoon anticipating possible rehab tomorrow. Appears to understand and agree. Exam - Constitutional Vitals: Period Temp Pulse Resp BP Sys/Vega Pulse Ox Last 24 Hr 96.9 F-98.5 F 69-86 14-20 107-126/49-60 98-100 Results - Labs CBC & BMP: 04/28/17 05:56 04/28/17 05:56 Quality Measures - VTE Contraindication to Pharmacological VTE Prophylaxis: Extremities with Hemorrhage
[2017-04-29] MEDS: IRON SUCROSE 200 MG in SODIUM CHLORIDE 0.9% 100 ML IV SCH (09:58)
[2017-04-29] MEDS: ONDANSETRON 4 MG/2 ML VIAL IV PRN (10:25)
--- NOTE | 2017-04-29 13:48 | Hospitalist Progress Note ---
Assessment and Plan - Time spent with patient Time spent with patient: Less than 30 minutes (1) Hypertension, essential Status: Chronic Assessment and plan: 81-year-old white female admitted by the hospitalist service on 04/24/2017 with right fractured hip. She underwent IM nailing of the right hip by Dr. Schwartz on 04/26/2017. If patient feels well in the morning she will be transferred to swing bed for further rehab. Dr. Daniels will see and examine patient and further recommendations to follow. Anemia--patient's H&H has dropped to 7.7/25 as of yesterday. there are no signs of active bleeding. Dr. Schwartz has ordered 2 units for transfusion today. Repeat labs in the morning Nausea/vomiting/constipation--patient did have some nausea and vomiting this morning. She had some constipation and was given something to assist with this. She feels better now with some Phenergan and she ate a little bit of lunch. Rising creatinine--patient's admission creatinine is 1.3 and yesterday's labs show it at 1.5. She is getting 2 units of blood and will go ahead and give her some additional fluids. She most likely is not taking in enough p.o. liquids. Will recheck this in the morning. Pulmonary fibrosis--no evidence of pneumonia on CT scan. She does have prominent pulmonary vascularity and interstitial pulmonary densities. She has been started on Levaquin for what was thought to be pneumonia. Will discuss this with Dr. Daniels to continue or stop. Current Visit: Yes (2) CAD (coronary artery disease) Status: Chronic Current Visit: Yes (3) Microcytic anemia Status: Chronic Current Visit: Yes (4) Closed right hip fracture Status: Acute Current Visit: Yes Qualifiers: Encounter type: initial encounter Qualified Code(s): S72.001A - Fracture of unspecified part of neck of right femur, initial encounter for closed fracture Hospitalist: Subjective Interval history: Patient's pain is controlled but she did have some nausea and vomiting this morning. She was given some Phenergan and she feels a little bit better and ate a little bit for lunch. She has been constipated and they did give her something to help with this this morning. Exam - Constitutional Vitals: Period Temp Pulse Resp BP Sys/Vega Pulse Ox Last 24 Hr 96.9 F-98.5 F 69-86 16-20 107-125/49-60 98-100 Exam: 81-year-old white female, no acute distress, alert and oriented Chest clear CV regular rate and rhythm Abdomen soft and nontender Extremities no edema, right hip dressing clean and dry Results - Labs CBC & BMP: 04/28/17 05:56 04/28/17 05:56 Lab Results: I have reviewed the past 24 hour labs Quality Measures - VTE Contraindication to Pharmacological VTE Prophylaxis: Extremities with Hemorrhage
[2017-04-29] MEDS: SODIUM CHLORIDE 0.9% 1,000 ML IV SCH ×2 (14:29→23:48)
[2017-04-29 22:31] LABS: Hematocrit 29.3 VOL% (35.7-47.0); Hemoglobin 9.3 GM/DL (12.0-16.0)
[2017-04-30] MEDS: SODIUM CHLORIDE 0.9% 1,000 ML IV SCH (05:03)
[2017-04-30 07:21] LABS: Basophils # 0.1 10*3/uL (0.0-0.2); Basophils % 0.8 % (0.0-0.8); Eosinophils # 0.2 10*3/uL (0.0-0.87); Eosinophils % 2.9 % (0.00-10.9); Hemoglobin 9.8 GM/DL (12.0-16.0); Immature Granulocytes % 4.7 %; Immature Granulocytes Absolute 0.35 #; Lymphocytes # 1.5 10*3/uL (1.4-4.0); Lymphocytes % 20.6 % (21.3-54.2); Mean Corpuscular HGB Conc 31.6 GM/DL (32-36); Mean Corpuscular Hemoglobin 26 PG (27-34); Mean Corpuscular Volume 81.6 FL (87-102); Mean Platelet Volume 11.4 FL (9.6-12.0); Monocytes # 1.3 10*3/uL (0.11-0.8); Monocytes % 17.2 % (1.7-12.7); NRBC # 0.06 10*3/uL; Neutrophils % 53.8 % (38.7-73.9); White Blood Count 7.5 T/CUMM (4-12)
[2017-04-30 07:33] LABS: Platelet Count 92 T/CUMM (130-400)
[2017-04-30 07:40] LABS: Band Neutrophils 3 % (0-10); Hypochromasia 1+; Lymphocytes 23 % (20-55); Macrocytosis Slight; Platelet Estimate Decreased; Polychromasia Slight; Segmented Neutrophils 65 % (50-85); Total Cells Counted 100
[2017-04-30 07:41] LABS: Giant Platelets Few
[2017-04-30 08:08] LABS: Calcium 7.9 MG/DL (8.5-10.1); Osmolality,Calculated 279.8 MOS/KG (273-304); Potassium 4.8 MMOL/L (3.5-5.1)
--- NOTE | 2017-04-30 08:10 | Orthopedic Progress Note ---
Orthopedics - Subjective Interval history: Hematocrit 31 comfortable. Some nausea this morning. Will continue with PT likely to swing bed soon Exam - Constitutional Vitals: Period Temp Pulse Resp BP Sys/Vega Pulse Ox Last 24 Hr 97.1 F-98.6 F 69-92 16-20 106-132/41-79 93-100 Results - Labs CBC & BMP: 04/30/17 06:36 04/30/17 06:36 Quality Measures - VTE Contraindication to Pharmacological VTE Prophylaxis: Extremities with Hemorrhage
[2017-04-30] MEDS: ONDANSETRON 4 MG/2 ML VIAL IV PRN (08:32)
[2017-04-30] MEDS: INSULIN REGULAR 100 UNIT/ML SUBCUT SCH ×4 (08:34→21:48)
[2017-04-30] MEDS ORDERED: FUROSEMIDE 40 MG/4 ML VIAL IV ONE ×2 (09:29→14:27)
--- NOTE | 2017-04-30 09:30 | Hospitalist Progress Note ---
Assessment and Plan - Time spent with patient Time spent with patient: Less than 30 minutes (1) Hypertension, essential Status: Chronic Assessment and plan: 81-year-old white female admitted by the hospitalist service on 04/24/2017 with right fractured hip. She underwent IM nailing of the right hip by Dr. Schwartz on 04/26/2017. If patient feels well in the morning she will be transferred to swing bed for further rehab. Dr. Daniels will see and examine patient and further recommendations to follow. Anemia--patient's H&H has dropped to 7.7/25 as of yesterday. there are no signs of active bleeding. Dr. Schwartz has ordered 2 units for transfusion today. Repeat labs in the morning Nausea/vomiting/constipation--patient did have some nausea and vomiting this morning. She had some constipation and was given something to assist with this. She feels better now with some Phenergan and she ate a little bit of lunch. Rising creatinine--patient's admission creatinine is 1.3 and yesterday's labs show it at 1.5. She is getting 2 units of blood and will go ahead and give her some additional fluids. She most likely is not taking in enough p.o. liquids. Will recheck this in the morning. Pulmonary fibrosis--no evidence of pneumonia on CT scan. She does have prominent pulmonary vascularity and interstitial pulmonary densities. She has been started on Levaquin for what was thought to be pneumonia. Will discuss this with Dr. Daniels to continue or stop. 04/30/2017 patient still complaining of nausea this morning and now with shortness of breath and some pedal edema. She did receive 4 units of blood yesterday with a posttransfusion H&H of 9.8/31. Patient did have some acute kidney injury that has resolved with a creatinine of 1.1 this morning. The patient might be mildly overloaded due to her blood and fluids so we will INT her IV and stop her IV fluids and give her 1 dose of Lasix. We will also check a chest x-ray for fluid overload. Patient's constipation has now resolved with 3 large bowel movements late last night. Her pain is controlled but other than some nausea, shakiness and weakness she is doing okay. We will continue to have her work with physical therapy today and hope her nausea resolves and discharged to swing bed tomorrow. This is all been discussed with Dr. Daniels Current Visit: Yes (2) CAD (coronary artery disease) Status: Chronic Current Visit: Yes (3) Microcytic anemia Status: Chronic Current Visit: Yes (4) Closed right hip fracture Status: Acute Current Visit: Yes Qualifiers: Encounter type: initial encounter Qualified Code(s): S72.001A - Fracture of unspecified part of neck of right femur, initial encounter for closed fracture Hospitalist: Subjective Interval history: Patient had some shortness of breath last night and now she has some pedal edema that is new. She is also nauseated this morning has been unable to eat. She denies vomiting, chest pain, or headache. She had 3 large bowel movements last night. Exam - Constitutional Vitals: Period Temp Pulse Resp BP Sys/Vega Pulse Ox Last 24 Hr 97.1 F-98.6 F 69-92 16-20 106-132/41-79 93-100 Exam: 81-year-old white female, no acute distress, alert and oriented Chest clear CV regular rate and rhythm Abdomen soft and nontender Extremities no edema, right hip dressing clean and dry Results - Labs CBC & BMP: 04/30/17 06:36 04/30/17 06:36 Lab Results: I have reviewed the past 24 hour labs Quality Measures - VTE Contraindication to Pharmacological VTE Prophylaxis: Extremities with Hemorrhage Specialty Discharge - Follow Up or Referrals Follow up with: Raimundo Schwartz Jr., MD [Physician] - (follow-up x-ray from [facility] in 2-1/2 weeks to be sent to Dr. Efren Musa office for further review and orders.)
[2017-04-30] MEDS: EZETIMIBE 10 MG TABLET PO SCH (09:49)
[2017-04-30] MEDS: PANTOPRAZOLE 40 MG TABLET PO SCH (09:49)
[2017-04-30] MEDS: MONTELUKAST 10 MG TABLET PO SCH (09:49)
[2017-04-30] MEDS: ASPIRIN CHEW 81 MG TABLET PO SCH (09:49)
[2017-04-30] MEDS: IRON SUCROSE 200 MG in SODIUM CHLORIDE 0.9% 100 ML IV SCH (09:54)
--- NOTE | 2017-04-30 11:31 | XRay Report ---
History short of breath Comparison 04/24/2017 The heart is mildly enlarged. Calcified right hilar nodes again seen. The rounded fullness the right hilum similar on multiple prior studies Prior diffuse pulmonary edema has improved. Minimal interstitial and the stranding opacities remain without consolidation. Skinfolds overlie the apices. Impression: Mild improvement of prior pulmonary edema PROCEDURE INTERPRETED AT [facility] DEPARTMENT OF RADIOLOGY Final Report Signed by: Dr. Marla Brunner
[2017-04-30] MEDS ORDERED: ZINC OXIDE PASTE 113 GM TUBE TOP PRN (14:37)
--- NOTE | 2017-04-30 15:23 | CT Report ---
History is a abdominal pain, history of hernia repair Comparison 02/22/2015 80 cc Omni 350 utilized The heart is enlarged. There is a moderate hiatal hernia with multiple distal esophageal and proximal gastric varices again seen Extensive nodularity of liver contours again demonstrated. Patient is status post cholecystectomy. There is mild splenic enlargement. Combination of the vessels and up to 1.4 cm nodes in the periportal and celiac region again seen. Focal area of the thinning in the body of pancreas and minimal diffuse prominence the pancreatic duct measuring the 3-4 mm is unchanged there is diffuse body wall and mesenteric edema with tiny amounts of the ascites in the paracolic gutters. Pelvis: Appendix is normal in size. A trace free fluid in the lower pelvis present. The there are diffusely a distended loops of small bowel measuring up to 2.5 cm with the [id number] air and fecal material in the colon. No discrete transition point seen. Right hip fracture with the internal fixation devices are present. Mild spondylolisthesis at L4-5 with degenerative changes in the lumbar spine present. There is a diffuse distention of the urinary bladder There is mild dilatation of both renal collecting systems and ureters with mildly delayed filling of the both renal collecting systems. Impression: 1. 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 Diffuse dilatation of both renal collecting systems may simply be related to the distended urinary bladder. Bladder catheterization could be considered. 3. Mild ileus 4. Other findings detailed above The CT exam was performed using one or more of the following dose reduction techniques: Automated exposure control, adjustment of the mA and/or kV according to patient size, or use of iterative reconstruction technique. PROCEDURE INTERPRETED AT [facility] DEPARTMENT OF RADIOLOGY Final Report Signed by: Dr. Marla Brunner
[2017-05-01] MEDS: ASPIRIN CHEW 81 MG TABLET PO SCH (09:02)
[2017-05-01] MEDS: EZETIMIBE 10 MG TABLET PO SCH (09:02)
[2017-05-01] MEDS: PANTOPRAZOLE 40 MG TABLET PO SCH (09:03)
[2017-05-01] MEDS: MONTELUKAST 10 MG TABLET PO SCH (09:03)
[2017-05-01] MEDS: LEVOFLOXACIN INJ 750 MG in PREMIX 1 EACH IV SCH (09:05)
[2017-05-01] MEDS: INSULIN REGULAR 100 UNIT/ML SUBCUT SCH ×2 (09:12→12:46)
--- NOTE | 2017-05-01 10:19 | Discharge Summary ---
Hospital Course - Hospital Course Hospital Course: 81-year-old white female with history of CHF, CAD, hypertension, PA with stents admitted by the hospitalist service on 04/24/2017 with right hip fracture status post fall. Dr. Schwartz was consulted and she underwent IM nailing of the right hip on 04/26/2017. Patient has done well as far as pain is concerned that she had some issues postoperatively with nausea and constipation. These have both resolved. CT of the abdomen and pelvis was done due to some concern with abdominal pain and nausea prior to arrival to evaluate her abdominal mesh from hernia repair. This showed some cirrhosis with splenomegaly and gastric and esophageal varices. Did show some dilation of the renal collecting systems and a distended urinary bladder. Bladder scan was obtained this morning post void residual was 600. Patient will be started on Flomax and they will check post void residuals at [facility] bed and if her residual is greater than 200 they will do in and out cath. patient had a CT scan done of her chest that showed no evidence of pneumonia but she had some prominent pulmonary vascularity and interstitial pulmonary densities. She also had an acute kidney injury due to dehydration and this is resolved as well. Patient did receive a total of 4 units of blood during this hospital stay. Her posttransfusion H&H is 9.8/31. Patient is being transferred to [facility] today for further rehab. Care coordination, chart review, and completed discharge paperwork took approximately 44 minutes. - Time spent with patient Time with patient DS: Greater than 30 minutes Diagnosis - Discharge Diagnosis (1) Hypertension, essential Status: Chronic (2) CAD (coronary artery disease) Status: Chronic (3) Microcytic anemia Status: Chronic (4) Closed right hip fracture Status: Resolved Specialty Discharge - Follow Up or Referrals Follow up with: Raimundo Schwartz Jr., MD [Physician] - (follow-up x-ray from [facility] in 2-1/2 weeks to be sent to Dr. Efren Musa office for further review and orders.) Discharge Plan - Discharge Data Disposition: Swing Bed, [facility], [facility] Condition at Discharge: Stable Discharge Diet: heart healthy Activity: as per physical therapy Hygiene: may shower Contact your physician if you experience:: fever over 101, Shortness of breath - Discharge Medications New Docusate Sodium Cap [Colace Cap] 100 mg PO BID PRN capsule PRN Reason: Constipation HYDROcodone/ACETAMIN 5-325 [[place] 5-325] 1 tablet PO Q4H PRN #30 tablet PRN Reason: Pain Mild (1-3) Tamsulosin [Flomax] 0.4 mg PO DAILY #30 capsule Continue Ursodiol [Actigall] 300 mg PO BID Montelukast Tab [Singulair Tab] 10 mg PO DAILY Ezetimibe [Zetia] 10 mg PO DAILY Atenolol [Tenormin] 25 mg PO DAILY Nitroglycerin [Nitroglycerin SL Tab] 0.4 mg SL DIRECTED Aspirin 81 mg PO DAILY Omeprazole 20 mg PO DAILY Furosemide Tab [Lasix Tab] 20 mg PO DAILY - Follow Up or Referral Follow Up: Raimundo Schwartz Jr., MD [Physician] - ([facility]2 weeks to be sent to Dr. Efren Musa office for further review and orders.) Ramiundo Jeffrey MD [Physician] - 1 Week (increased post void residuals) - Forms/Instructions Instructions: Hip Fracture, Rent Collector (GEN) Additional Discharge Instructions: Check postvoid residuals at swing bed and do in and out catheter as needed for residuals greater than 200. Exam - Constitutional Vitals: Period Temp Pulse Resp BP Sys/Vega Pulse Ox Last 24 Hr 97.0 F-97.5 F 71-94 16-18 113-139/53-70 94-98 Exam: 81-year-old white female, no acute distress, alert and oriented Chest clear CV regular rate and rhythm Abdomen obese, nontender Extremities with no edema Discharge Results Labs on day of discharge: Labs from last 24 hours 05/01/17 04/30/17 04/30/17 07:17 20:56 11:44 POC Glucose 101 145 H 140 H DS: Provider Date of admission: 04/25/17 01:04 Primary care physician: Codey Pattreson NP Attending physician on admission: Maurilio Baugh MD Consults: 04/25/17 04:15 Consult to Pastoral Services [CONS] Routine Comment: Pastoral Screen: Request Integration Software Engineer Visit Pastoral Screen Source of Request: Patient 04/25/17 07:25 Consult to Physician [CONS] Routine Comment: Consulting Provider: Raimundo Schwartz Jr. Consulting Provider Notified: Yes When should Consulting Provider be notified: Now Person Notified: milo called Date Notified: 04/25/17 Time Notified: 08:21 09/14/17 12:21 Consult to Physical Therapy [CONS] Routine Reason for Physical Therapy: Evaluate and Treat 04/25/17 12:23 Consult to Case Mgmt/Social Srvs [CONS] Routine Reason for Case Mgmt/Social Srvs: Discharge Planning Swingbed/SNF/[facility] Home Health Rehab Equipment Consult Comment: Standard Walker, Bedside Commode Consult to Physical Therapy [CONS] Routine Reason for Physical Therapy: Evaluate and Treat Consult Comment: Touchdown to 25% weightbearing on right Discharging clinician: ANGEL Bains Expected date of discharge: 05/01/17
--- NOTE | 2017-05-01 10:30 | Orthopedic Progress Note ---
Orthopedics - Subjective Interval history: Comfortable H&H stable discussed discharge plan. To rehab Today Exam - Constitutional Vitals: Period Temp Pulse Resp BP Sys/Vega Pulse Ox Last 24 Hr 97.0 F-97.5 F 71-94 16-18 113-139/53-70 94-98 Results - Labs CBC & BMP: 04/30/17 06:36 04/30/17 06:36 Quality Measures - VTE Contraindication to Pharmacological VTE Prophylaxis: Extremities with Hemorrhage Specialty Discharge - Follow Up or Referrals Follow up with: Raimundo Schwartz Jr., MD [Physician] - (follow-up x-ray from [facility] in 2-1/2 weeks to be sent to Dr. Efren Musa office for further review and orders.)
[2017-05-01 12:40] VITALS: BP 125/52
[2017-05-02] MEDS ORDERED: LEVOFLOXACIN INJ 750 MG in PREMIX 1 EACH IV SCH (09:00)
--- NOTE | 2017-05-02 18:32 | Operative Note ---
DATE: 04/25/2017 PREOPERATIVE DIAGNOSIS: INTERTROCHANTERIC FRACTURE, RIGHT HIP. POSTOPERATIVE DIAGNOSIS: SAME. OPERATIVE PROCEDURE: COMPRESSION HIP SCREW, RIGHT. SURGEON: Raimundo Schwartz Jr., MD ANESTHESIA: General. INDICATIONS: An 81-year-old, white female, reported to be ambulated about home, failed sustaining a displaced comminuted intertrochanteric fracture to the right hip. I discussed with her and her famil y preoperatively, the diagnosis, treatment and recommendation including the need for compression hip screw fixation. OPERATIVE PROCEDURE: The patient was taken to the operating room and under general anesthetic, posit ioned on the fracture table. The left leg placed in a well-padded leg duran, and the right foot jailyn robson in traction boot. Gentle traction and internal rotation was applied. The hip was then prepped a nd draped in a usual sterile manner. She received antibiotics preoperatively. A longitudinal incisi on was made over the right hip. Sharp dissection was carried down through skin and subcutaneous tiss ue. The IT band was split at the gluteus in line with its fibers and reflected anteriorly. A guide pin was placed in the center of the femoral head on both AP and lateral projections. A 130-degree fo ur-hole plate and a large lag screw were used to secure the reduction. It was secured with standard technique. Wounds were irrigated. Hemostasis was verified and the wound closed in layers using 0-Vi cryl to the vastus and IT band layers, 2-0 Vicryl for subcutaneous layer, and ame for skin. Ster ile dressing applied. She was taken to recovery room in stable condition.
--- NOTE | 2017-05-06 08:20 | Physician Query Form ---
CLICK EDIT DOCUMENT TO SELECT QUERY ANSWER --> OK --> SIGN Agustina Don RN, CCDS Certified Clinical Autoglazier W) [phone] (f) [phone] [email or web address] PROVIDERS: Make your selection(s) from the choices in EACH section by typing an "x" and enter comments in the comment section. Please use your independent medical judgment in providing your response. This request does not imply that any particular answer is desired or expected. CLINICAL INDICATORS: (Providers should not edit this section) The medical record indicates that the patient was admitted with a fractured hip , history of CHF, on the : "Could indicates cardiac decompensation", on the : "Pulmonary Edema" and the patient is on PO/ IV Lasix. Please provide further specificity regarding CHF. ACUITY: ( x) Acute ( ) Chronic ( ) Acute on Chronic ( ) Clinically unable to determine TYPE: ( x) Systolic (HFrEF - heart failure with reduced systolic function/EF) ( ) Diastolic (HFpEF - heart failure with preserved systolic function/EF) ( ) Combined Systolic/Diastolic ( ) Other, please specify: ( ) Clinically unable to determine ( ) Past Medical History of Systolic CHF ( ) Past Medical History of Diastolic CHF ( ) Clinically unable to determine COMMENTS: PLEASE ALSO DOCUMENT RESPONSE IN PROGRESS NOTES AND/OR DISCHARGE SUMMARY Use of terms such as suspected, likely, or probable (associated with a specific diagnosis that is being evaluated, monitored, or treated as if it exists) are acceptable and can be restated in the discharge summary if not ruled out. MTDD
== END 2017-05-01 13:55 | disposition swing bed (61) | DRG 480 ==
LOC: EDUNIT# → EDBD → N.ED 21:52 → SUATTDRO 04-25 01:04 → N.EDINP 04-25 01:04 → N.3E 04-25 01:33
PROVIDERS: ADMIT Internal Medicine; ATTEND Internal Medicine

== ENCOUNTER 2017-10-29 16:57 | Inpatient (IN) ==
[2017-10-29] MEDS ORDERED: diphenhydrAMINE CAP 25 MG CAPSULE PO PRN (18:34)
[2017-10-29] MEDS ORDERED: DOCUSATE SODIUM 100 MG CAPSULE PO PRN (18:34)
[2017-10-29] MEDS ORDERED: ACETAMINOPHEN 325 MG TABLET PO PRN (18:34)
[2017-10-29] MEDS ORDERED: ONDANSETRON 4 MG/2 ML VIAL IV PRN (18:34)
[2017-10-29] MEDS ORDERED: guaiFENesin/DM ER 600-30 MG TABLET PO PRN (18:34)
[2017-10-29] MEDS ORDERED: NITROGLYCERIN SL 0.4 MG TABLET SL PRN (18:35)
[2017-10-29] MEDS ORDERED: FUROSEMIDE 40 MG/4 ML VIAL IV SCH (21:00)
[2017-10-29] MEDS: URSODIOL 300 MG CAPSULE PO SCH (21:56)
[2017-10-29] MEDS: SULFAMETHOX/TRIMETHOPRIM 800-160 MG TABLET PO SCH (21:57)
[2017-10-29] MEDS: FERROUS SULFATE 325 MG TABLET PO SCH (21:58)
[2017-10-29] MEDS: TEMAZEPAM 15 MG CAPSULE PO SCH (22:00)
[2017-10-29] MEDS: ENOXAPARIN 40 MG/0.4 ML SYRINGE SUBCUT SCH (22:01)
[2017-10-29] MEDS ORDERED: ENOXAPARIN 40 MG/0.4 ML SYRINGE ONE (22:24)
[2017-10-29] MEDS ORDERED: SULFAMETHOX/TRIMETHOPRIM 800-160 MG TABLET ONE (22:24)
[2017-10-30 04:40] LABS: Albumin 1.6 G/DL (3.4-5.0); Bilirubin,Total 0.5 MG/DL (0.2-1.0); Calcium 7.5 MG/DL (8.5-10.1); Osmolality,Calculated 283.4 MOS/KG (273-304); Potassium 3.4 MMOL/L (3.5-5.1); Risk Ratio 2.68; Thyroid Stimulating Hormone 17.9 uIU/ml (0.358-3.74); Total Protein 5.4 G/DL (6.4-8.3); VLDL CHOLESTEROL 13.4 MG/DL
[2017-10-30] MEDS ORDERED: MAGNESIUM SULF RIDER 4 GM in PREMIX 1 EACH IV PRN (08:37)
[2017-10-30] MEDS ORDERED: MAGNESIUM SULF RIDER 2 GM in PREMIX 1 EACH IV PRN (08:37)
[2017-10-30] MEDS ORDERED: SULFAMETHOX/TRIMETHOPRIM 800-160 MG TABLET ONE (08:59)
[2017-10-30] MEDS ORDERED: PANTOPRAZOLE 40 MG TABLET PO ONE (08:59)
[2017-10-30] MEDS ORDERED: FUROSEMIDE 40 MG/4 ML VIAL ONE (08:59)
[2017-10-30] MEDS ORDERED: ASPIRIN EC 325 MG TABLET PO ONE (08:59)
[2017-10-30] MEDS ORDERED: POTASSIUM CHLORIDE 20 MEQ TABLET PO ONE (08:59)
[2017-10-30] MEDS ORDERED: NON-FORMULARY MEDICATION (Omeprazole [Omeprazole] 20 MG) PO SCH (09:00)
[2017-10-30] MEDS ORDERED: ATENOLOL 25 MG TABLET PO SCH (09:00)
[2017-10-30] MEDS: URSODIOL 300 MG CAPSULE PO SCH ×2 (09:05→21:07)
[2017-10-30] MEDS: POTASSIUM CHLORIDE 20 MEQ TABLET PO SCH (09:06)
[2017-10-30] MEDS: ASPIRIN EC 325 MG TABLET PO SCH (09:06)
[2017-10-30] MEDS: FERROUS SULFATE 325 MG TABLET PO SCH ×2 (09:06→21:16)
[2017-10-30] MEDS: SULFAMETHOX/TRIMETHOPRIM 800-160 MG TABLET PO SCH ×2 (09:06→21:07)
[2017-10-30] MEDS: PANTOPRAZOLE 40 MG TABLET PO SCH (09:07)
[2017-10-30] MEDS: FUROSEMIDE 40 MG/4 ML VIAL IV SCH ×2 (09:15→21:08)
[2017-10-30] MEDS: EZETIMIBE 10 MG TABLET PO SCH (09:38)
[2017-10-30] MEDS: MONTELUKAST 10 MG TABLET PO SCH (09:38)
[2017-10-30] MEDS: SERTRALINE 50 MG TABLET PO SCH (09:39)
[2017-10-30] MEDS: LEVALBUTEROL 0.63 MG/3 ML NEB RESP TX SCH ×4 (12:01→23:41)
[2017-10-30] MEDS: TEMAZEPAM 15 MG CAPSULE PO SCH (21:07)
[2017-10-30] MEDS: ENOXAPARIN 40 MG/0.4 ML SYRINGE SUBCUT SCH (21:07)
[2017-10-30] MEDS: ZINC OXIDE PASTE 113 GM TUBE TOP SCH ×2 (21:16→21:21)
[2017-10-30] MEDS: BACITRACIN OINT 0.9 GM PACK TOP SCH (23:02)
[2017-10-30] MEDS: SKIN HEALING OINT (AQUAPHOR) 50 GM TUBE TOP PRN (23:07)
[2017-10-30 23:18] LABS: Apearance,Urine Slightly Hazy (Clear); Bacteria,Urine Moderate /HPF (Few); Bilirubin,Urine Negative (Negative); Blood, Urine Large mg/dL (Negative); Glucose,Urine (UA) Negative (Negative); Hyaline Casts,Urine 28 /LPF (0-3); Ketones,Urine Negative (Negative); Mucus,Urine Occasional /LPF (Occasional); Nitrite,Urine Negative (Negative); Protein,Urine Negative; RBC,Urine 38 /HPF (0-4); Squamous Epithelial Cell,Urine Occasional /HPF (0-10); Urine Color Yellow (Yellow); Urine Specific Gravity 1.005 (1.001-1.035); Urine Urobilinogen < 2.0 EU/DL (0.2-1.0); WBC,Urine 10 /HPF (0-6)
[2017-10-31] MEDS: LEVALBUTEROL 0.63 MG/3 ML NEB RESP TX SCH ×5 (03:06→19:26)
[2017-10-31] MEDS: LEVOTHYROXINE 25 MCG TABLET PO SCH (06:07)
[2017-10-31 08:44] LABS: Basophils # 0.1 10*3/uL (0.0-0.2); Basophils % 0.8 % (0.0-0.8); Eosinophils # 0.1 10*3/uL (0.0-0.87); Eosinophils % 1.7 % (0.00-10.9); Hemoglobin 10.6 GM/DL (12.0-16.0); Immature Granulocytes % 0.7 %; Immature Granulocytes Absolute 0.04 #; Lymphocytes # 1.6 10*3/uL (1.4-4.0); Lymphocytes % 26.9 % (21.3-54.2); Mean Corpuscular HGB Conc 32.1 GM/DL (32-36); Mean Corpuscular Hemoglobin 28 PG (27-34); Mean Corpuscular Volume 85.9 FL (87-102); Mean Platelet Volume 11.9 FL (9.6-12.0); Monocytes # 0.7 10*3/uL (0.11-0.8); Monocytes % 12.3 % (1.7-12.7); Neutrophils # 3.5 10*3/uL (1.4-7.4); Neutrophils % 57.6 % (38.7-73.9); Platelet Count 147 T/CUMM (130-400); Red Blood Count 3.84 MC/CUMM (3.8-5.5); Red Cell Distribution Width 15.7 % (9.3-17.3)
[2017-10-31 09:02] LABS: Calcium 7.7 MG/DL (8.5-10.1); Osmolality,Calculated 283.3 MOS/KG (273-304); Potassium 3.6 MMOL/L (3.5-5.1)
[2017-10-31] MEDS: FUROSEMIDE 40 MG/4 ML VIAL IV SCH ×2 (09:04→21:11)
[2017-10-31] MEDS: MONTELUKAST 10 MG TABLET PO SCH (09:05)
[2017-10-31] MEDS: URSODIOL 300 MG CAPSULE PO SCH ×2 (09:05→21:11)
[2017-10-31] MEDS: POTASSIUM CHLORIDE 20 MEQ TABLET PO SCH (09:05)
[2017-10-31] MEDS: EZETIMIBE 10 MG TABLET PO SCH (09:05)
[2017-10-31] MEDS: SERTRALINE 50 MG TABLET PO SCH (09:06)
[2017-10-31] MEDS: ASPIRIN EC 325 MG TABLET PO SCH (09:06)
[2017-10-31] MEDS: FERROUS SULFATE 325 MG TABLET PO SCH ×2 (09:06→21:11)
[2017-10-31] MEDS: SULFAMETHOX/TRIMETHOPRIM 800-160 MG TABLET PO SCH ×2 (09:06→21:11)
[2017-10-31] MEDS: PANTOPRAZOLE 40 MG TABLET PO SCH (09:06)
[2017-10-31] MEDS: ZINC OXIDE PASTE 113 GM TUBE TOP SCH ×2 (09:07→21:11)
[2017-10-31] MEDS: BACITRACIN OINT 0.9 GM PACK TOP SCH (09:07)
[2017-10-31] MEDS: cefTRIAXone 1,000 MG in SYRINGE 1 EACH IV SCH (12:38)
[2017-10-31] MEDS: MULTIVITAMIN (BEROCCA) TABLET PO SCH (12:38)
[2017-10-31] MEDS ORDERED: BACITRACIN OINT 28.35 GM TUBE TOP ONE (13:00)
[2017-10-31] MEDS: TEMAZEPAM 15 MG CAPSULE PO SCH (21:11)
[2017-10-31] MEDS: ENOXAPARIN 40 MG/0.4 ML SYRINGE SUBCUT SCH (21:11)
[2017-11-01] MEDS: LEVALBUTEROL 0.63 MG/3 ML NEB RESP TX SCH ×7 (01:23→23:16)
[2017-11-01 05:59] LABS: Basophils # 0.1 10*3/uL (0.0-0.2); Basophils % 1.1 % (0.0-0.8); Eosinophils # 0.1 10*3/uL (0.0-0.87); Eosinophils % 2.2 % (0.00-10.9); Hematocrit 34.6 VOL% (35.7-47.0); Hemoglobin 10.7 GM/DL (12.0-16.0); Immature Granulocytes % 0.8 %; Immature Granulocytes Absolute 0.05 #; Lymphocytes # 1.5 10*3/uL (1.4-4.0); Lymphocytes % 23.8 % (21.3-54.2); Mean Corpuscular HGB Conc 30.9 GM/DL (32-36); Mean Corpuscular Hemoglobin 27 PG (27-34); Mean Corpuscular Volume 87.2 FL (87-102); Monocytes # 0.9 10*3/uL (0.11-0.8); Monocytes % 14.3 % (1.7-12.7); Neutrophils # 3.7 10*3/uL (1.4-7.4); Neutrophils % 57.8 % (38.7-73.9); Platelet Count 146 T/CUMM (130-400); Red Blood Count 3.97 MC/CUMM (3.8-5.5); Red Cell Distribution Width 15.6 % (9.3-17.3); White Blood Count 6.4 T/CUMM (4-12)
[2017-11-01 06:32] LABS: Calcium 7.7 MG/DL (8.5-10.1); Osmolality,Calculated 281.5 MOS/KG (273-304); Potassium 3.3 MMOL/L (3.5-5.1)
[2017-11-01] MEDS: LEVOTHYROXINE 25 MCG TABLET PO SCH (06:50)
[2017-11-01] MEDS: FUROSEMIDE 40 MG/4 ML VIAL IV SCH ×2 (09:10→20:38)
[2017-11-01] MEDS: POTASSIUM CHLORIDE 20 MEQ TABLET PO SCH (09:11)
[2017-11-01] MEDS: BACITRACIN OINT 0.9 GM PACK TOP SCH (09:11)
[2017-11-01] MEDS: ASPIRIN EC 325 MG TABLET PO SCH (09:11)
[2017-11-01] MEDS: MONTELUKAST 10 MG TABLET PO SCH (09:11)
[2017-11-01] MEDS: CHOLECALCIFEROL 1,000 UNIT TABLET PO SCH (09:11)
[2017-11-01] MEDS: FERROUS SULFATE 325 MG TABLET PO SCH ×2 (09:11→20:38)
[2017-11-01] MEDS: SULFAMETHOX/TRIMETHOPRIM 800-160 MG TABLET PO SCH ×2 (09:11→20:38)
[2017-11-01] MEDS: PANTOPRAZOLE 40 MG TABLET PO SCH (09:11)
[2017-11-01] MEDS: URSODIOL 300 MG CAPSULE PO SCH ×2 (09:11→20:38)
[2017-11-01] MEDS: MULTIVITAMIN (BEROCCA) TABLET PO SCH (09:12)
[2017-11-01] MEDS: SERTRALINE 50 MG TABLET PO SCH (09:12)
[2017-11-01] MEDS: ZINC OXIDE PASTE 113 GM TUBE TOP SCH ×2 (09:12→20:38)
[2017-11-01] MEDS: EZETIMIBE 10 MG TABLET PO SCH (09:12)
[2017-11-01] MEDS: cefTRIAXone 1,000 MG in SYRINGE 1 EACH IV SCH (12:06)
[2017-11-01] MEDS ORDERED: POTASSIUM CHLORIDE 20 MEQ TABLET PO ONE (13:34)
[2017-11-01] MEDS: TEMAZEPAM 15 MG CAPSULE PO SCH (20:38)
[2017-11-01] MEDS: ENOXAPARIN 40 MG/0.4 ML SYRINGE SUBCUT SCH (20:39)
[2017-11-02] MEDS: LEVALBUTEROL 0.63 MG/3 ML NEB RESP TX SCH ×6 (03:10→22:59)
[2017-11-02] MEDS: LEVOTHYROXINE 25 MCG TABLET PO SCH (05:31)
[2017-11-02 06:09] LABS: Basophils # 0.1 10*3/uL (0.0-0.2); Eosinophils # 0.2 10*3/uL (0.0-0.87); Eosinophils % 2.5 % (0.00-10.9); Hematocrit 34.6 VOL% (35.7-47.0); Immature Granulocytes % 0.8 %; Immature Granulocytes Absolute 0.06 #; Lymphocytes # 1.7 10*3/uL (1.4-4.0); Lymphocytes % 23.8 % (21.3-54.2); Mean Corpuscular HGB Conc 31.8 GM/DL (32-36); Mean Corpuscular Hemoglobin 27 PG (27-34); Mean Corpuscular Volume 85.9 FL (87-102); Mean Platelet Volume 11.6 FL (9.6-12.0); Monocytes # 0.9 10*3/uL (0.11-0.8); Monocytes % 12.6 % (1.7-12.7); Neutrophils # 4.3 10*3/uL (1.4-7.4); Neutrophils % 59.3 % (38.7-73.9); Platelet Count 144 T/CUMM (130-400); Red Blood Count 4.03 MC/CUMM (3.8-5.5); Red Cell Distribution Width 15.6 % (9.3-17.3); White Blood Count 7.2 T/CUMM (4-12)
[2017-11-02 06:47] LABS: Calcium 8.2 MG/DL (8.5-10.1); Osmolality,Calculated 280.7 MOS/KG (273-304); Potassium 3.8 MMOL/L (3.5-5.1)
[2017-11-02] MEDS: FUROSEMIDE 40 MG/4 ML VIAL IV SCH (09:29)
[2017-11-02] MEDS: SULFAMETHOX/TRIMETHOPRIM 800-160 MG TABLET PO SCH (09:29)
[2017-11-02] MEDS: FERROUS SULFATE 325 MG TABLET PO SCH ×2 (09:30→21:37)
[2017-11-02] MEDS: SERTRALINE 50 MG TABLET PO SCH (09:30)
[2017-11-02] MEDS: POTASSIUM CHLORIDE 20 MEQ TABLET PO SCH (09:30)
[2017-11-02] MEDS: MONTELUKAST 10 MG TABLET PO SCH (09:30)
[2017-11-02] MEDS: PANTOPRAZOLE 40 MG TABLET PO SCH (09:30)
[2017-11-02] MEDS: ZINC OXIDE PASTE 113 GM TUBE TOP SCH ×2 (09:30→21:37)
[2017-11-02] MEDS: BACITRACIN OINT 0.9 GM PACK TOP SCH (09:30)
[2017-11-02] MEDS: MULTIVITAMIN (BEROCCA) TABLET PO SCH (09:30)
[2017-11-02] MEDS: EZETIMIBE 10 MG TABLET PO SCH (09:30)
[2017-11-02] MEDS: URSODIOL 300 MG CAPSULE PO SCH ×2 (09:30→21:37)
[2017-11-02] MEDS: ASPIRIN EC 325 MG TABLET PO SCH (09:30)
[2017-11-02] MEDS: CHOLECALCIFEROL 1,000 UNIT TABLET PO SCH (10:11)
[2017-11-02 11:07] LABS: Apearance,Urine CLOUDY (Clear); Bacteria,Urine Many /HPF (Few); Bilirubin,Urine Negative (Negative); Blood, Urine Large mg/dL (Negative); Glucose,Urine (UA) Negative (Negative); Hyaline Casts,Urine 51 /LPF (0-3); Ketones,Urine Negative (Negative); Mucus,Urine Few /LPF (Occasional); Nitrite,Urine Negative (Negative); Protein,Urine 100 MG/DL; RBC,Urine 974 /HPF (0-4); Squamous Epithelial Cell,Urine Occasional /HPF (0-10); Urine Color Amber (Yellow); Urine Specific Gravity 1.012 (1.001-1.035); Urine Urobilinogen < 2.0 EU/DL (0.2-1.0); WBC,Urine 229 /HPF (0-6)
[2017-11-02] MEDS: cefTRIAXone 1,000 MG in SYRINGE 1 EACH IV SCH (11:41)
[2017-11-02] MEDS: FUROSEMIDE 40 MG TABLET PO SCH (16:51)
[2017-11-02] MEDS: ENOXAPARIN 40 MG/0.4 ML SYRINGE SUBCUT SCH (21:37)
[2017-11-02] MEDS: TEMAZEPAM 15 MG CAPSULE PO SCH (21:37)
[2017-11-03] MEDS: LEVALBUTEROL 0.63 MG/3 ML NEB RESP TX SCH ×6 (02:42→23:36)
[2017-11-03 05:15] LABS: Basophils # 0.1 10*3/uL (0.0-0.2); Basophils % 1.2 % (0.0-0.8); Eosinophils # 0.2 10*3/uL (0.0-0.87); Eosinophils % 2.2 % (0.00-10.9); Hematocrit 34.2 VOL% (35.7-47.0); Immature Granulocytes % 1.3 %; Lymphocytes # 1.8 10*3/uL (1.4-4.0); Lymphocytes % 22.9 % (21.3-54.2); Mean Corpuscular HGB Conc 32.2 GM/DL (32-36); Mean Corpuscular Hemoglobin 27 PG (27-34); Mean Corpuscular Volume 84.9 FL (87-102); Mean Platelet Volume 12.1 FL (9.6-12.0); Monocytes # 0.9 10*3/uL (0.11-0.8); Monocytes % 11.8 % (1.7-12.7); Neutrophils # 4.6 10*3/uL (1.4-7.4); Neutrophils % 60.6 % (38.7-73.9); Platelet Count 163 T/CUMM (130-400); Red Blood Count 4.03 MC/CUMM (3.8-5.5); Red Cell Distribution Width 15.8 % (9.3-17.3); White Blood Count 7.6 T/CUMM (4-12)
[2017-11-03 05:53] LABS: Osmolality,Calculated 282.7 MOS/KG (273-304); Potassium 4.2 MMOL/L (3.5-5.1)
[2017-11-03] MEDS: LEVOTHYROXINE 25 MCG TABLET PO SCH (05:54)
[2017-11-03] MEDS: POTASSIUM CHLORIDE 20 MEQ TABLET PO SCH (10:11)
[2017-11-03] MEDS: URSODIOL 300 MG CAPSULE PO SCH ×2 (10:11→20:54)
[2017-11-03] MEDS: EZETIMIBE 10 MG TABLET PO SCH (10:11)
[2017-11-03] MEDS: SERTRALINE 50 MG TABLET PO SCH (10:11)
[2017-11-03] MEDS: CHOLECALCIFEROL 1,000 UNIT TABLET PO SCH (10:11)
[2017-11-03] MEDS: MONTELUKAST 10 MG TABLET PO SCH (10:11)
[2017-11-03] MEDS: PANTOPRAZOLE 40 MG TABLET PO SCH (10:11)
[2017-11-03] MEDS: FERROUS SULFATE 325 MG TABLET PO SCH ×2 (10:12→20:55)
[2017-11-03] MEDS: FUROSEMIDE 40 MG TABLET PO SCH ×2 (10:12→16:05)
[2017-11-03] MEDS: MULTIVITAMIN (BEROCCA) TABLET PO SCH (10:12)
[2017-11-03] MEDS: BACITRACIN OINT 0.9 GM PACK TOP SCH (10:12)
[2017-11-03] MEDS: ASPIRIN EC 325 MG TABLET PO SCH (10:12)
[2017-11-03] MEDS: cefTRIAXone 1,000 MG in SYRINGE 1 EACH IV SCH (10:13)
[2017-11-03] MEDS: ZINC OXIDE PASTE 113 GM TUBE TOP SCH ×2 (10:13→22:14)
[2017-11-03] MEDS: FLUCONAZOLE 100 MG TABLET PO SCH (10:13)
[2017-11-03] MEDS: ENOXAPARIN 40 MG/0.4 ML SYRINGE SUBCUT SCH (20:55)
[2017-11-03] MEDS: TEMAZEPAM 15 MG CAPSULE PO SCH ×2 (22:02→22:36)
[2017-11-04] MEDS: LEVALBUTEROL 0.63 MG/3 ML NEB RESP TX SCH ×3 (03:10→11:20)
[2017-11-04 05:30] LABS: Basophils # 0.1 10*3/uL (0.0-0.2); Basophils % 1.5 % (0.0-0.8); Eosinophils # 0.2 10*3/uL (0.0-0.87); Eosinophils % 2.8 % (0.00-10.9); Hematocrit 33.1 VOL% (35.7-47.0); Hemoglobin 10.3 GM/DL (12.0-16.0); Immature Granulocytes % 0.9 %; Immature Granulocytes Absolute 0.05 #; Lymphocytes # 1.6 10*3/uL (1.4-4.0); Lymphocytes % 29.4 % (21.3-54.2); Mean Corpuscular HGB Conc 31.1 GM/DL (32-36); Mean Corpuscular Hemoglobin 27 PG (27-34); Mean Corpuscular Volume 87.6 FL (87-102); Mean Platelet Volume 11.9 FL (9.6-12.0); Monocytes # 0.7 10*3/uL (0.11-0.8); Monocytes % 12.7 % (1.7-12.7); Neutrophils # 2.9 10*3/uL (1.4-7.4); Neutrophils % 52.7 % (38.7-73.9); Platelet Count 138 T/CUMM (130-400); Red Blood Count 3.78 MC/CUMM (3.8-5.5); Red Cell Distribution Width 15.9 % (9.3-17.3); White Blood Count 5.4 T/CUMM (4-12)
[2017-11-04 06:02] LABS: Osmolality,Calculated 286.5 MOS/KG (273-304)
[2017-11-04] MEDS: LEVOTHYROXINE 25 MCG TABLET PO SCH (06:20)
[2017-11-04] MEDS: POTASSIUM CHLORIDE 20 MEQ TABLET PO SCH (09:53)
[2017-11-04] MEDS: PANTOPRAZOLE 40 MG TABLET PO SCH (09:55)
[2017-11-04] MEDS: EZETIMIBE 10 MG TABLET PO SCH (09:55)
[2017-11-04] MEDS: FLUCONAZOLE 100 MG TABLET PO SCH (09:55)
[2017-11-04] MEDS: SERTRALINE 50 MG TABLET PO SCH (09:55)
[2017-11-04] MEDS: CHOLECALCIFEROL 1,000 UNIT TABLET PO SCH (09:55)
[2017-11-04] MEDS: MONTELUKAST 10 MG TABLET PO SCH (09:55)
[2017-11-04] MEDS: MULTIVITAMIN (BEROCCA) TABLET PO SCH (09:55)
[2017-11-04] MEDS: URSODIOL 300 MG CAPSULE PO SCH (09:55)
[2017-11-04] MEDS: ASPIRIN EC 325 MG TABLET PO SCH (09:56)
[2017-11-04] MEDS: FUROSEMIDE 40 MG TABLET PO SCH (09:56)
[2017-11-04] MEDS: FERROUS SULFATE 325 MG TABLET PO SCH (09:56)
[2017-11-04] MEDS: SKIN HEALING OINT (AQUAPHOR) 50 GM TUBE TOP PRN (11:45)
[2017-11-04 12:11] VITALS: BP 117/63
[2017-11-04] MEDS: BACITRACIN OINT 0.9 GM PACK TOP SCH (13:51)
[2017-11-04] MEDS: ZINC OXIDE PASTE 113 GM TUBE TOP SCH (13:51)
[2017-11-04] MEDS: cefTRIAXone 1,000 MG in SYRINGE 1 EACH IV SCH (13:52)
== END 2017-11-04 15:50 | disposition swing bed (61) | DRG 291 ==
LOC: EDBD → EDUNIT# → N.ED 16:57 → N.EDINP 18:06 → N.TELES 10-30 12:44
PROVIDERS: ADMIT Hospitalist; ATTEND Hospitalist

== ENCOUNTER 2018-03-04 11:55 | Inpatient (IN) ==
[2018-03-04] MEDS ORDERED: ONDANSETRON 4 MG/2 ML VIAL IV STA (12:51)
[2018-03-04] MEDS ORDERED: PANTOPRAZOLE 40 MG VIAL IV STA (12:51)
[2018-03-04] MEDS ORDERED: SODIUM CHLORIDE 0.9% 1,000 ML IV STA (12:51)
[2018-03-04] MEDS ORDERED: LEVOFLOXACIN INJ 500 MG in PREMIX 1 EACH IV STA (13:32)
[2018-03-04 14:19] LABS: Basophils # 0.1 10*3/uL (0.0-0.2); Basophils % 0.8 % (0.0-0.8); Eosinophils # 0.1 10*3/uL (0.0-0.87); Eosinophils % 1.5 % (0.00-10.9); Hematocrit 28.8 VOL% (35.7-47.0); Hemoglobin 8.8 GM/DL (12.0-16.0); Immature Granulocytes % 0.5 %; Immature Granulocytes Absolute 0.03 #; Lymphocytes # 1.1 10*3/uL (1.4-4.0); Lymphocytes % 18.3 % (21.3-54.2); Mean Corpuscular HGB Conc 30.6 GM/DL (32-36); Mean Corpuscular Hemoglobin 29 PG (27-34); Mean Platelet Volume 11.8 FL (9.6-12.0); Monocytes # 0.6 10*3/uL (0.11-0.8); Monocytes % 9.6 % (1.7-12.7); Neutrophils # 4.3 10*3/uL (1.4-7.4); Neutrophils % 69.3 % (38.7-73.9); Platelet Count 109 T/CUMM (130-400); Red Cell Distribution Width 14.8 % (9.3-17.3); White Blood Count 6.2 T/CUMM (4-12)
[2018-03-04 14:41] LABS: Albumin 1.9 G/DL (3.4-5.0); Bilirubin,Total 0.6 MG/DL (0.2-1.0); Calcium 8.2 MG/DL (8.5-10.1); Potassium 3.5 MMOL/L (3.5-5.1); Total Protein 6.7 G/DL (6.4-8.3)
[2018-03-04 14:46] LABS: INR 1.2; PT Patient Result 12.9 SECS; Partial Thromboplastin Time 24.6 SECS (0-40)
[2018-03-04] MEDS ORDERED: ACETAMINOPHEN 325 MG TABLET PO PRN (15:10)
[2018-03-04] MEDS ORDERED: NITROGLYCERIN SL 0.4 MG TABLET SL PRN (15:12)
[2018-03-04] MEDS: ALBUTEROL/IPRATROPIUM 3 ML NEB RESP TX SCH (20:03)
[2018-03-04] MEDS: FUROSEMIDE 40 MG TABLET PO SCH (20:25)
[2018-03-04] MEDS: MONTELUKAST 10 MG TABLET PO SCH (20:25)
[2018-03-04] MEDS: URSODIOL 300 MG CAPSULE PO SCH (20:25)
[2018-03-04] MEDS: TEMAZEPAM 15 MG CAPSULE PO SCH (20:25)
[2018-03-04] MEDS: FERROUS SULFATE 325 MG TABLET PO SCH (20:25)
[2018-03-04 22:18] LABS: Hematocrit 29.2 VOL% (35.7-47.0); Hemoglobin 8.7 GM/DL (12.0-16.0)
[2018-03-05] MEDS: ALBUTEROL/IPRATROPIUM 3 ML NEB RESP TX SCH ×4 (01:14→19:05)
[2018-03-05] MEDS: LEVOTHYROXINE 25 MCG TABLET PO SCH (06:20)
[2018-03-05 07:05] LABS: Hematocrit 29.6 VOL% (35.7-47.0); Hemoglobin 8.9 GM/DL (12.0-16.0)
[2018-03-05 07:07] LABS: Basophils % 0.6 % (0.0-0.8); Eosinophils # 0.1 10*3/uL (0.0-0.87); Eosinophils % 2.2 % (0.00-10.9); Hematocrit 29.6 VOL% (35.7-47.0); Hemoglobin 8.9 GM/DL (12.0-16.0); Immature Granulocytes % 0.3 %; Immature Granulocytes Absolute 0.02 #; Lymphocytes # 1.1 10*3/uL (1.4-4.0); Lymphocytes % 17.3 % (21.3-54.2); Mean Corpuscular HGB Conc 30.1 GM/DL (32-36); Mean Corpuscular Hemoglobin 28 PG (27-34); Mean Corpuscular Volume 94.6 FL (87-102); Mean Platelet Volume 11.9 FL (9.6-12.0); Monocytes # 0.7 10*3/uL (0.11-0.8); Neutrophils # 4.4 10*3/uL (1.4-7.4); Neutrophils % 68.6 % (38.7-73.9); Platelet Count 131 T/CUMM (130-400); Red Blood Count 3.13 MC/CUMM (3.8-5.5); White Blood Count 6.5 T/CUMM (4-12)
[2018-03-05 07:30] LABS: Calcium 7.9 MG/DL (8.5-10.1); Osmolality,Calculated 291.8 MOS/KG (273-304); Potassium 3.7 MMOL/L (3.5-5.1)
[2018-03-05] MEDS: URSODIOL 300 MG CAPSULE PO SCH ×2 (12:28→20:58)
[2018-03-05] MEDS: PANTOPRAZOLE 40 MG TABLET PO SCH (12:29)
[2018-03-05] MEDS: MULTIVITAMIN (BEROCCA) TABLET PO SCH (12:29)
[2018-03-05] MEDS: EZETIMIBE 10 MG TABLET PO SCH (12:29)
[2018-03-05] MEDS: SERTRALINE 50 MG TABLET PO SCH (12:30)
[2018-03-05] MEDS: ATENOLOL 25 MG TABLET PO SCH (12:30)
[2018-03-05] MEDS: FUROSEMIDE 40 MG TABLET PO SCH ×2 (12:31→17:43)
[2018-03-05] MEDS: FERROUS SULFATE 325 MG TABLET PO SCH ×2 (12:32→20:58)
[2018-03-05] MEDS: POTASSIUM CHLORIDE 20 MEQ TABLET PO SCH (12:32)
[2018-03-05] MEDS: ZINC OXIDE PASTE 113 GM TUBE TOP SCH ×2 (12:36→20:58)
[2018-03-05] MEDS: LEVOFLOXACIN INJ 250 MG in PREMIX 1 EACH IV SCH (17:43)
[2018-03-05] MEDS: TEMAZEPAM 15 MG CAPSULE PO SCH (20:58)
[2018-03-05] MEDS: MONTELUKAST 10 MG TABLET PO SCH (20:58)
[2018-03-06] MEDS: ALBUTEROL/IPRATROPIUM 3 ML NEB RESP TX SCH ×4 (00:30→19:45)
[2018-03-06 04:48] LABS: Basophils # 0.1 10*3/uL (0.0-0.2); Basophils % 0.7 % (0.0-0.8); Eosinophils # 0.2 10*3/uL (0.0-0.87); Eosinophils % 2.5 % (0.00-10.9); Hemoglobin 8.3 GM/DL (12.0-16.0); Immature Granulocytes % 0.6 %; Immature Granulocytes Absolute 0.04 #; Lymphocytes # 1.6 10*3/uL (1.4-4.0); Mean Corpuscular HGB Conc 29.6 GM/DL (32-36); Mean Corpuscular Hemoglobin 29 PG (27-34); Mean Corpuscular Volume 96.2 FL (87-102); Mean Platelet Volume 11.2 FL (9.6-12.0); Monocytes # 0.9 10*3/uL (0.11-0.8); Monocytes % 13.6 % (1.7-12.7); Neutrophils # 3.9 10*3/uL (1.4-7.4); Neutrophils % 58.6 % (38.7-73.9); Platelet Count 129 T/CUMM (130-400); Red Blood Count 2.91 MC/CUMM (3.8-5.5); Red Cell Distribution Width 14.7 % (9.3-17.3); White Blood Count 6.7 T/CUMM (4-12)
[2018-03-06 05:07] LABS: Hypochromasia 1+
[2018-03-06 05:08] LABS: Microcytosis Slight; Platelet Estimate Adequate
[2018-03-06 05:14] LABS: Calcium 7.8 MG/DL (8.5-10.1); Osmolality,Calculated 292.8 MOS/KG (273-304); Potassium 3.6 MMOL/L (3.5-5.1)
[2018-03-06] MEDS: LEVOTHYROXINE 25 MCG TABLET PO SCH (05:37)
[2018-03-06] MEDS: MULTIVITAMIN (BEROCCA) TABLET PO SCH (09:20)
[2018-03-06] MEDS: URSODIOL 300 MG CAPSULE PO SCH ×2 (09:20→22:42)
[2018-03-06] MEDS: FUROSEMIDE 40 MG TABLET PO SCH ×2 (09:20→15:42)
[2018-03-06] MEDS: POTASSIUM CHLORIDE 20 MEQ TABLET PO SCH (09:21)
[2018-03-06] MEDS: FERROUS SULFATE 325 MG TABLET PO SCH ×2 (09:21→22:42)
[2018-03-06] MEDS: PANTOPRAZOLE 40 MG TABLET PO SCH (09:21)
[2018-03-06] MEDS: SERTRALINE 50 MG TABLET PO SCH (09:22)
[2018-03-06] MEDS: EZETIMIBE 10 MG TABLET PO SCH (09:22)
[2018-03-06] MEDS: ATENOLOL 25 MG TABLET PO SCH (11:05)
[2018-03-06] MEDS ORDERED: BENZOCAINE 20% SPRAY 57 GM CAN TOP ONE (12:01)
[2018-03-06] MEDS: ZINC OXIDE PASTE 113 GM TUBE TOP SCH ×2 (12:19→22:42)
[2018-03-06] MEDS: LEVOFLOXACIN INJ 250 MG in PREMIX 1 EACH IV SCH (14:55)
[2018-03-06] MEDS ORDERED: ASPIRIN CHEW 81 MG TABLET PO ONE (20:55)
[2018-03-06] MEDS ORDERED: FUROSEMIDE 40 MG/4 ML VIAL IV ONE (21:05)
[2018-03-06] MEDS ORDERED: ALBUTEROL/IPRATROPIUM 3 ML NEB RESP TX ONE (21:05)
[2018-03-06 21:09] LABS: Basophils % 0.4 % (0.0-0.8); Eosinophils % 0.8 % (0.00-10.9); Hematocrit 27.4 VOL% (35.7-47.0); Immature Granulocytes % 1.2 %; Immature Granulocytes Absolute 0.06 #; Lymphocytes # 1.2 10*3/uL (1.4-4.0); Lymphocytes % 23.5 % (21.3-54.2); Mean Corpuscular HGB Conc 29.2 GM/DL (32-36); Mean Corpuscular Hemoglobin 29 PG (27-34); Mean Corpuscular Volume 97.9 FL (87-102); Mean Platelet Volume 11.2 FL (9.6-12.0); Monocytes # 0.6 10*3/uL (0.11-0.8); Monocytes % 11.9 % (1.7-12.7); Neutrophils # 3.2 10*3/uL (1.4-7.4); Neutrophils % 62.2 % (38.7-73.9); Platelet Count 113 T/CUMM (130-400); Red Cell Distribution Width 14.7 % (9.3-17.3); White Blood Count 5.2 T/CUMM (4-12)
[2018-03-06] MEDS ORDERED: FUROSEMIDE 40 MG/4 ML VIAL ONE (21:09)
[2018-03-06] MEDS: MORPHINE 4 MG/1 ML VIAL IV PRN (21:28)
[2018-03-06 21:33] LABS: Alanine Aminotransferase 16 U/L (13-56); Albumin 1.8 G/DL (3.4-5.0); Alkaline Phosphatase 122 U/L (45-117); Aspartate Amino Transferase 19 U/L (0-37); Bilirubin,Total < 0.39 MG/DL (0.2-1.0); Blood Urea Nitrogen 31 MG/DL (7-18); Calcium 7.9 MG/DL (8.5-10.1); Glucose 111 MG/DL (74-106); Osmolality,Calculated 295.7 MOS/KG (273-304); Potassium 3.6 MMOL/L (3.5-5.1); Sodium 145 MMOL/L (136-145); Total Protein 6.2 G/DL (6.4-8.3)
[2018-03-06] MEDS: MONTELUKAST 10 MG TABLET PO SCH (22:42)
[2018-03-06] MEDS: TEMAZEPAM 15 MG CAPSULE PO SCH ×2 (22:42→23:47)
[2018-03-07] MEDS: ALBUTEROL/IPRATROPIUM 3 ML NEB RESP TX SCH (00:17)
[2018-03-07] MEDS ORDERED: FUROSEMIDE 40 MG/4 ML VIAL IV ONE (03:09)
[2018-03-07 03:29] LABS: ABG Base Excess 9.9 MMOL/L (-2.5-2.5); ABG HCO3 38.7 MMOL/L (20-26); ABG Oxygen Saturation 96.5 % (95-100); ABG PH 7.284 (7.35-7.45); ABG PO2 104.2 MM HG (80-95); ABG TCO2 41.2 MMOL/L (23-27); Allen Test Positive; Pt O2 Delivery Device Venturi Mask
[2018-03-07 03:39] LABS: ABG PCO2 83.4 MM HG (35-48)
[2018-03-07 05:47] LABS: Apearance,Urine CLEAR (Clear); Bilirubin,Urine Negative (Negative); Blood, Urine Negative (Negative); Glucose,Urine (UA) Negative (Negative); Hyaline Casts,Urine 74 /LPF (0-3); Ketones,Urine Negative (Negative); Nitrite,Urine Negative (Negative); Protein,Urine Negative; RBC,Urine <1 /HPF (0-4); Urine Color Yellow (Yellow); Urine Specific Gravity 1.008 (1.001-1.035); Urine Urobilinogen < 2.0 EU/DL (0.2-1.0)
[2018-03-07] MEDS: LEVOTHYROXINE 25 MCG TABLET PO SCH (06:20)
[2018-03-07 08:52] LABS: Lymphocytes,Pleural Fluid 89 %; Monocytes,Pleural Fluid 1 %; Neutrophils,Pleural Fluid 10 %; RBC,Pleural Fluid 328 T/CUMM
[2018-03-07 09:07] LABS: ABG Base Excess 10.9 MMOL/L (-2.5-2.5); ABG HCO3 40.2 MMOL/L (20-26); ABG Oxygen Saturation 98.6 % (95-100); ABG PH 7.264 (7.35-7.45); ABG PO2 162.7 MM HG (80-95); ABG TCO2 42.9 MMOL/L (23-27); Allen Test Positive; Pt O2 Delivery Device BIPAP
[2018-03-07 09:09] LABS: ABG PCO2 90.7 MM HG (35-48)
[2018-03-07] MEDS: FUROSEMIDE 40 MG/4 ML VIAL IV SCH ×2 (09:37→16:26)
[2018-03-07] MEDS: URSODIOL 300 MG CAPSULE PO SCH ×2 (09:38→21:48)
[2018-03-07] MEDS: FERROUS SULFATE 325 MG TABLET PO SCH ×2 (09:38→21:48)
[2018-03-07] MEDS: MULTIVITAMIN (BEROCCA) TABLET PO SCH (09:38)
[2018-03-07] MEDS: PANTOPRAZOLE 40 MG TABLET PO SCH (09:38)
[2018-03-07] MEDS: ZINC OXIDE PASTE 113 GM TUBE TOP SCH ×2 (09:38→21:48)
[2018-03-07] MEDS: EZETIMIBE 10 MG TABLET PO SCH (09:38)
[2018-03-07] MEDS: POTASSIUM CHLORIDE 20 MEQ TABLET PO SCH (09:38)
[2018-03-07] MEDS: SERTRALINE 50 MG TABLET PO SCH (09:39)
[2018-03-07] MEDS: ATENOLOL 25 MG TABLET PO SCH (09:39)
[2018-03-07] MEDS: SUCRALFATE 1 GM/10 ML UDCUP PO SCH ×3 (12:46→21:47)
[2018-03-07] MEDS: LEVOFLOXACIN INJ 250 MG in PREMIX 1 EACH IV SCH (15:17)
[2018-03-07] MEDS ORDERED: MAGNESIUM SULF RIDER 2 GM in PREMIX 1 EACH IV PRN (16:07)
[2018-03-07] MEDS ORDERED: MAGNESIUM SULF RIDER 4 GM in PREMIX 1 EACH IV PRN (16:07)
[2018-03-07] MEDS ORDERED: POTASSIUM CHLORIDE RIDER 10 MEQ in PREMIX 1 EACH IV PRN (16:48)
[2018-03-07] MEDS: TEMAZEPAM 15 MG CAPSULE PO SCH (21:47)
[2018-03-07] MEDS: MONTELUKAST 10 MG TABLET PO SCH (21:48)
[2018-03-08] MEDS: POTASSIUM CHLORIDE 20 MEQ TABLET PO PRN ×4 (00:05→11:00)
[2018-03-08 04:00] LABS: ABG Base Excess 13.9 MMOL/L (-2.5-2.5); ABG HCO3 37.8 MMOL/L (20-26); ABG Oxygen Saturation 98.9 % (95-100); ABG TCO2 36.6 MMOL/L (23-27)
[2018-03-08 04:18] LABS: Basophils % 0.4 % (0.0-0.8); Eosinophils # 0.1 10*3/uL (0.0-0.87); Eosinophils % 1.1 % (0.00-10.9); Hematocrit 28.1 VOL% (35.7-47.0); Hemoglobin 8.6 GM/DL (12.0-16.0); Immature Granulocytes % 0.7 %; Immature Granulocytes Absolute 0.03 #; Lymphocytes % 21.8 % (21.3-54.2); Mean Corpuscular HGB Conc 30.6 GM/DL (32-36); Mean Corpuscular Hemoglobin 29 PG (27-34); Mean Corpuscular Volume 94.3 FL (87-102); Mean Platelet Volume 12.3 FL (9.6-12.0); Monocytes # 0.4 10*3/uL (0.11-0.8); Monocytes % 9.6 % (1.7-12.7); NRBC # 0.02 10*3/uL; Neutrophils % 66.4 % (38.7-73.9); Platelet Count 54 T/CUMM (130-400); Red Blood Count 2.98 MC/CUMM (3.8-5.5); Red Cell Distribution Width 15.1 % (9.3-17.3); White Blood Count 4.6 T/CUMM (4-12)
[2018-03-08 04:35] LABS: Calcium 8.1 MG/DL (8.5-10.1); Osmolality,Calculated 306.1 MOS/KG (273-304); Potassium 3.3 MMOL/L (3.5-5.1); Thyroid Stimulating Hormone 14.9 uIU/ml (0.358-3.74)
[2018-03-08] MEDS: LEVOTHYROXINE 25 MCG TABLET PO SCH (06:40)
[2018-03-08] MEDS: LEVOTHYROXINE 50 MCG TABLET PO SCH (07:19)
[2018-03-08] MEDS ORDERED: LEVOTHYROXINE 25 MCG TABLET PO ONE (07:30)
[2018-03-08] MEDS: FUROSEMIDE 40 MG/4 ML VIAL IV SCH ×2 (07:58→15:15)
[2018-03-08] MEDS: SUCRALFATE 1 GM/10 ML UDCUP PO SCH ×4 (07:59→20:17)
[2018-03-08] MEDS: SERTRALINE 50 MG TABLET PO SCH (08:01)
[2018-03-08] MEDS: ATENOLOL 25 MG TABLET PO SCH (08:01)
[2018-03-08] MEDS: FERROUS SULFATE 325 MG TABLET PO SCH ×2 (08:01→20:19)
[2018-03-08] MEDS: EZETIMIBE 10 MG TABLET PO SCH (08:01)
[2018-03-08] MEDS: MULTIVITAMIN (BEROCCA) TABLET PO SCH (08:01)
[2018-03-08] MEDS: ZINC OXIDE PASTE 113 GM TUBE TOP SCH ×2 (08:03→20:19)
[2018-03-08] MEDS: PANTOPRAZOLE 40 MG TABLET PO SCH (08:03)
[2018-03-08] MEDS: URSODIOL 300 MG CAPSULE PO SCH ×2 (08:03→20:18)
[2018-03-08] MEDS: POTASSIUM CHLORIDE 20 MEQ TABLET PO SCH (08:03)
[2018-03-08] MEDS: MORPHINE 4 MG/1 ML VIAL IV PRN (09:18)
[2018-03-08] MEDS ORDERED: ONDANSETRON 4 MG/2 ML VIAL IV PRN (09:35)
[2018-03-08] MEDS ORDERED: ONDANSETRON 4 MG/2 ML VIAL ONE (09:38)
[2018-03-08] MEDS ORDERED: POTASSIUM CHLORIDE 20 MEQ/15 ML UDCUP PO ONE (11:08)
[2018-03-08] MEDS: ALBUMIN 25% 25 GM in PREMIX 1 EACH IV SCH ×2 (11:48→18:31)
[2018-03-08] MEDS: LEVOFLOXACIN INJ 250 MG in PREMIX 1 EACH IV SCH (15:15)
[2018-03-08] MEDS: MONTELUKAST 10 MG TABLET PO SCH (20:18)
[2018-03-08] MEDS: TEMAZEPAM 15 MG CAPSULE PO SCH (20:18)
[2018-03-09] MEDS: ALBUMIN 25% 25 GM in PREMIX 1 EACH IV SCH ×2 (03:00→11:12)
[2018-03-09 03:34] LABS: ABG Base Excess 12.4 MMOL/L (-2.5-2.5); ABG Oxygen Saturation 87.6 % (95-100); ABG PH 7.316 (7.35-7.45); ABG PO2 58.4 MM HG (80-95); ABG TCO2 38.8 MMOL/L (23-27)
[2018-03-09 03:39] LABS: ABG PCO2 80.4 MM HG (35-48)
[2018-03-09 04:11] LABS: Basophils % 0.5 % (0.0-0.8); Eosinophils # 0.1 10*3/uL (0.0-0.87); Eosinophils % 1.4 % (0.00-10.9); Hematocrit 25.9 VOL% (35.7-47.0); Hemoglobin 7.8 GM/DL (12.0-16.0); Immature Granulocytes % 0.5 %; Immature Granulocytes Absolute 0.03 #; Lymphocytes # 1.1 10*3/uL (1.4-4.0); Lymphocytes % 19.1 % (21.3-54.2); Mean Corpuscular HGB Conc 30.1 GM/DL (32-36); Mean Corpuscular Hemoglobin 30 PG (27-34); Mean Corpuscular Volume 98.1 FL (87-102); Mean Platelet Volume 11.1 FL (9.6-12.0); Monocytes # 0.7 10*3/uL (0.11-0.8); Monocytes % 11.4 % (1.7-12.7); Neutrophils # 3.8 10*3/uL (1.4-7.4); Neutrophils % 67.1 % (38.7-73.9); Platelet Count 118 T/CUMM (130-400); Red Blood Count 2.64 MC/CUMM (3.8-5.5); Red Cell Distribution Width 15.9 % (9.3-17.3); White Blood Count 5.7 T/CUMM (4-12)
[2018-03-09 04:31] LABS: Calcium 8.7 MG/DL (8.5-10.1); Potassium 3.6 MMOL/L (3.5-5.1)
[2018-03-09] MEDS ORDERED: LEVOTHYROXINE 25 MCG TABLET PO ONE (07:30)
[2018-03-09] MEDS: FUROSEMIDE 40 MG/4 ML VIAL IV SCH (09:08)
[2018-03-09] MEDS: ZINC OXIDE PASTE 113 GM TUBE TOP SCH (09:08)
[2018-03-09] MEDS: SUCRALFATE 1 GM/10 ML UDCUP PO SCH ×3 (13:12→16:30)
[2018-03-09] MEDS: URSODIOL 300 MG CAPSULE PO SCH (13:20)
[2018-03-09] MEDS: FERROUS SULFATE 325 MG TABLET PO SCH (13:20)
[2018-03-09] MEDS: ATENOLOL 25 MG TABLET PO SCH (13:20)
[2018-03-09] MEDS: SERTRALINE 50 MG TABLET PO SCH (13:20)
[2018-03-09] MEDS: POTASSIUM CHLORIDE 20 MEQ TABLET PO SCH (13:20)
[2018-03-09] MEDS: EZETIMIBE 10 MG TABLET PO SCH (13:20)
[2018-03-09] MEDS: POTASSIUM CHLORIDE 20 MEQ TABLET PO PRN ×2 (13:20→15:23)
[2018-03-09] MEDS: LEVOTHYROXINE 50 MCG TABLET PO SCH (13:20)
[2018-03-09] MEDS: PANTOPRAZOLE 40 MG TABLET PO SCH (13:21)
[2018-03-09] MEDS: MULTIVITAMIN (BEROCCA) TABLET PO SCH (13:21)
[2018-03-09] MEDS ORDERED: SODIUM CHLORIDE 0.9% 1,000 ML IV PRN (14:47)
[2018-03-09] MEDS: LEVOFLOXACIN INJ 250 MG in PREMIX 1 EACH IV SCH (15:23)
[2018-03-10] MEDS: FERROUS SULFATE 325 MG TABLET PO SCH ×4 (00:12→21:31)
[2018-03-10] MEDS: SUCRALFATE 1 GM/10 ML UDCUP PO SCH ×5 (00:12→21:13)
[2018-03-10] MEDS: TEMAZEPAM 15 MG CAPSULE PO SCH (00:12)
[2018-03-10] MEDS: MONTELUKAST 10 MG TABLET PO SCH ×3 (00:12→21:30)
[2018-03-10] MEDS: URSODIOL 300 MG CAPSULE PO SCH ×4 (00:12→21:31)
[2018-03-10] MEDS: ZINC OXIDE PASTE 113 GM TUBE TOP SCH ×3 (00:13→21:13)
[2018-03-10 04:09] LABS: Basophils % 0.5 % (0.0-0.8); Eosinophils # 0.1 10*3/uL (0.0-0.87); Eosinophils % 1.8 % (0.00-10.9); Hematocrit 33.4 VOL% (35.7-47.0); Immature Granulocytes % 0.5 %; Immature Granulocytes Absolute 0.03 #; Lymphocytes # 1.1 10*3/uL (1.4-4.0); Lymphocytes % 17.7 % (21.3-54.2); Mean Corpuscular HGB Conc 31.4 GM/DL (32-36); Mean Corpuscular Hemoglobin 30 PG (27-34); Mean Corpuscular Volume 94.1 FL (87-102); Mean Platelet Volume 11.6 FL (9.6-12.0); Monocytes # 0.6 10*3/uL (0.11-0.8); Monocytes % 10.3 % (1.7-12.7); NRBC # 0.03 10*3/uL; Neutrophils # 4.2 10*3/uL (1.4-7.4); Neutrophils % 69.2 % (38.7-73.9); Platelet Count 118 T/CUMM (130-400); Red Blood Count 3.55 MC/CUMM (3.8-5.5); Red Cell Distribution Width 17.5 % (9.3-17.3)
[2018-03-10 04:11] LABS: Hemoglobin 10.5 GM/DL (12.0-16.0)
[2018-03-10 04:43] LABS: Osmolality,Calculated 308.9 MOS/KG (273-304); Potassium 3.4 MMOL/L (3.5-5.1)
[2018-03-10] MEDS: LEVOTHYROXINE 50 MCG TABLET PO SCH (07:25)
[2018-03-10] MEDS: ATENOLOL 25 MG TABLET PO SCH (10:16)
[2018-03-10] MEDS: EZETIMIBE 10 MG TABLET PO SCH (10:16)
[2018-03-10] MEDS: MULTIVITAMIN (BEROCCA) TABLET PO SCH (10:16)
[2018-03-10] MEDS: FUROSEMIDE 40 MG/4 ML VIAL IV SCH (10:16)
[2018-03-10] MEDS: SERTRALINE 50 MG TABLET PO SCH (10:16)
[2018-03-10] MEDS: metOLazone 5 MG TABLET PO SCH (10:17)
[2018-03-10] MEDS: POTASSIUM CHLORIDE 20 MEQ TABLET PO SCH (10:18)
[2018-03-10] MEDS: PANTOPRAZOLE 40 MG TABLET PO SCH (10:18)
[2018-03-10] MEDS: LEVOFLOXACIN INJ 250 MG in PREMIX 1 EACH IV SCH (16:02)
[2018-03-11 03:33] LABS: Calcium 8.7 MG/DL (8.5-10.1); Osmolality,Calculated 306.9 MOS/KG (273-304)
[2018-03-11] MEDS: LEVOTHYROXINE 50 MCG TABLET PO SCH (06:09)
[2018-03-11] MEDS: ZINC OXIDE PASTE 113 GM TUBE TOP SCH ×2 (07:40→20:36)
[2018-03-11] MEDS: FUROSEMIDE 40 MG/4 ML VIAL IV SCH (11:05)
[2018-03-11] MEDS: URSODIOL 300 MG CAPSULE PO SCH ×2 (11:48→20:36)
[2018-03-11] MEDS: FERROUS SULFATE 325 MG TABLET PO SCH ×2 (11:48→20:36)
[2018-03-11] MEDS: POTASSIUM CHLORIDE 20 MEQ TABLET PO SCH (11:48)
[2018-03-11] MEDS: SUCRALFATE 1 GM/10 ML UDCUP PO SCH ×4 (11:48→20:36)
[2018-03-11] MEDS: MULTIVITAMIN (BEROCCA) TABLET PO SCH (11:48)
[2018-03-11] MEDS: ATENOLOL 25 MG TABLET PO SCH (11:49)
[2018-03-11] MEDS: SERTRALINE 50 MG TABLET PO SCH (11:49)
[2018-03-11] MEDS: metOLazone 5 MG TABLET PO SCH (11:49)
[2018-03-11] MEDS: EZETIMIBE 10 MG TABLET PO SCH (11:49)
[2018-03-11] MEDS: PANTOPRAZOLE 40 MG TABLET PO SCH (11:49)
[2018-03-11] MEDS ORDERED: DEXTROSE 50% 25 GM/50 ML VIAL IV PRN (15:24)
[2018-03-11] MEDS ORDERED: GLUCAGON 1 MG VIAL IM PRN (15:24)
[2018-03-11] MEDS: LEVOFLOXACIN INJ 250 MG in PREMIX 1 EACH IV SCH (17:33)
[2018-03-11] MEDS: INSULIN REGULAR 100 UNIT/ML SUBCUT SCH (18:51)
[2018-03-11] MEDS: MONTELUKAST 10 MG TABLET PO SCH (20:36)
[2018-03-12] MEDS: INSULIN REGULAR 100 UNIT/ML SUBCUT SCH ×4 (00:05→18:08)
[2018-03-12 04:00] LABS: Osmolality,Calculated 310.7 MOS/KG (273-304)
[2018-03-12 04:11] LABS: Potassium 2.5 MMOL/L (3.5-5.1)
[2018-03-12 04:24] LABS: ABG Base Excess 15.8 MMOL/L (-2.5-2.5); ABG HCO3 42.2 MMOL/L (20-26); ABG Oxygen Saturation 97.3 % (95-100); ABG PH 7.465 (7.35-7.45); ABG PO2 96.8 MM HG (80-95); Allen Test Positive
[2018-03-12 04:31] LABS: Osmolality,Calculated 308.9 MOS/KG (273-304); Prealbumin 6.5 MG/DL (20-40)
[2018-03-12 04:39] LABS: Potassium 2.5 MMOL/L (3.5-5.1)
[2018-03-12] MEDS: POTASSIUM CHLORIDE 20 MEQ/15 ML UDCUP PER TUBE PRN ×4 (04:45→22:24)
[2018-03-12] MEDS: LEVOTHYROXINE 50 MCG TABLET PO SCH (06:14)
[2018-03-12] MEDS: EZETIMIBE 10 MG TABLET PO SCH (08:13)
[2018-03-12] MEDS: POTASSIUM CHLORIDE 20 MEQ TABLET PO SCH (08:13)
[2018-03-12] MEDS: FERROUS SULFATE 325 MG TABLET PO SCH (08:13)
[2018-03-12] MEDS: ATENOLOL 25 MG TABLET PO SCH (08:13)
[2018-03-12] MEDS: MULTIVITAMIN (BEROCCA) TABLET PO SCH (08:14)
[2018-03-12] MEDS: SERTRALINE 50 MG TABLET PO SCH (08:14)
[2018-03-12] MEDS: SPIRONOLACTONE 25 MG TABLET PO SCH ×2 (08:14→20:35)
[2018-03-12] MEDS: SUCRALFATE 1 GM/10 ML UDCUP PO SCH ×4 (08:15→20:35)
[2018-03-12] MEDS: FUROSEMIDE 40 MG/4 ML VIAL IV SCH (08:15)
[2018-03-12] MEDS: URSODIOL 300 MG CAPSULE PO SCH ×2 (08:15→20:35)
[2018-03-12] MEDS: ZINC OXIDE PASTE 113 GM TUBE TOP SCH ×2 (08:16→20:41)
[2018-03-12] MEDS: PANTOPRAZOLE 40 MG TABLET PO SCH (08:17)
[2018-03-12] MEDS ORDERED: metOLazone 5 MG TABLET PO SCH (09:00)
[2018-03-12] MEDS ORDERED: POTASSIUM CHLORIDE 20 MEQ TABLET PO SCH (09:30)
[2018-03-12] MEDS: POTASSIUM CHLORIDE 20 MEQ/15 ML UDCUP PER TUBE SCH ×3 (11:50→18:08)
[2018-03-12] MEDS: PANTOPRAZOLE 40 MG VIAL IV SCH (11:50)
[2018-03-12] MEDS: LEVOFLOXACIN INJ 250 MG in PREMIX 1 EACH IV SCH (14:41)
[2018-03-12] MEDS: MONTELUKAST 10 MG TABLET PO SCH (20:35)
[2018-03-13] MEDS: INSULIN REGULAR 100 UNIT/ML SUBCUT SCH ×4 (00:58→17:37)
[2018-03-13] MEDS: POTASSIUM CHLORIDE 20 MEQ/15 ML UDCUP PER TUBE PRN ×2 (01:00→06:17)
[2018-03-13 03:43] LABS: Calcium 9.3 MG/DL (8.5-10.1); Osmolality,Calculated 315.6 MOS/KG (273-304); Potassium 3.7 MMOL/L (3.5-5.1)
[2018-03-13] MEDS: LEVOTHYROXINE 50 MCG TABLET PO SCH (06:16)
[2018-03-13] MEDS: SUCRALFATE 1 GM/10 ML UDCUP PO SCH ×4 (06:31→20:48)
[2018-03-13] MEDS: SPIRONOLACTONE 25 MG TABLET PO SCH ×2 (08:35→20:48)
[2018-03-13] MEDS: FUROSEMIDE 40 MG/4 ML VIAL IV SCH (08:35)
[2018-03-13] MEDS: ATENOLOL 25 MG TABLET PO SCH (08:35)
[2018-03-13] MEDS: MULTIVITAMIN (BEROCCA) TABLET PO SCH (08:35)
[2018-03-13] MEDS: EZETIMIBE 10 MG TABLET PO SCH (08:35)
[2018-03-13] MEDS: ZINC OXIDE PASTE 113 GM TUBE TOP SCH ×2 (08:35→20:49)
[2018-03-13] MEDS: URSODIOL 300 MG CAPSULE PO SCH ×2 (08:35→20:48)
[2018-03-13] MEDS: SERTRALINE 50 MG TABLET PO SCH (08:36)
[2018-03-13] MEDS: PANTOPRAZOLE 40 MG VIAL IV SCH (08:37)
[2018-03-13] MEDS ORDERED: POTASSIUM CHLORIDE 20 MEQ TABLET PO SCH (09:30)
[2018-03-13] MEDS: POTASSIUM CHLORIDE 20 MEQ/15 ML UDCUP PO SCH ×3 (09:40→16:41)
[2018-03-13] MEDS: LEVOFLOXACIN INJ 250 MG in PREMIX 1 EACH IV SCH (15:46)
[2018-03-13] MEDS: MONTELUKAST 10 MG TABLET PO SCH (20:48)
[2018-03-14] MEDS: INSULIN REGULAR 100 UNIT/ML SUBCUT SCH ×4 (02:54→18:25)
[2018-03-14] MEDS: LEVOTHYROXINE 50 MCG TABLET PO SCH (06:00)
[2018-03-14 06:29] LABS: Blood Urea Nitrogen 43 MG/DL (7-18); Calcium 9.2 MG/DL (8.5-10.1); Glucose 151 MG/DL (74-106); Osmolality,Calculated 316.6 MOS/KG (273-304); Potassium 3.9 MMOL/L (3.5-5.1); Sodium 153 MMOL/L (136-145)
[2018-03-14] MEDS ORDERED: PANTOPRAZOLE 40 MG TABLET PO SCH (09:00)
[2018-03-14] MEDS: POTASSIUM CHLORIDE 20 MEQ/15 ML UDCUP PER TUBE PRN (09:25)
[2018-03-14] MEDS: URSODIOL 300 MG CAPSULE PO SCH ×2 (09:26→20:19)
[2018-03-14] MEDS: MULTIVITAMIN (BEROCCA) TABLET PO SCH (09:26)
[2018-03-14] MEDS: FUROSEMIDE 40 MG/5 ML UDCUP PO SCH (09:26)
[2018-03-14] MEDS: ATENOLOL 25 MG TABLET PO SCH (09:27)
[2018-03-14] MEDS: SERTRALINE 50 MG TABLET PO SCH (09:27)
[2018-03-14] MEDS: EZETIMIBE 10 MG TABLET PO SCH (09:27)
[2018-03-14] MEDS: SPIRONOLACTONE 25 MG TABLET PO SCH ×2 (09:27→20:19)
[2018-03-14] MEDS: PANTOPRAZOLE 40 MG VIAL IV SCH (09:28)
[2018-03-14] MEDS: ZINC OXIDE PASTE 113 GM TUBE TOP SCH ×2 (09:28→20:19)
[2018-03-14] MEDS: SUCRALFATE 1 GM/10 ML UDCUP PO SCH ×4 (09:28→20:19)
[2018-03-14] MEDS: LEVOFLOXACIN INJ 250 MG in PREMIX 1 EACH IV SCH (15:27)
[2018-03-14] MEDS: MONTELUKAST 10 MG TABLET PO SCH (20:19)
[2018-03-15] MEDS: INSULIN REGULAR 100 UNIT/ML SUBCUT SCH ×4 (00:30→18:19)
[2018-03-15] MEDS: LEVOTHYROXINE 50 MCG TABLET PO SCH (06:07)
[2018-03-15 06:36] LABS: Blood Urea Nitrogen 52 MG/DL (7-18); Calcium 8.9 MG/DL (8.5-10.1); Glucose 143 MG/DL (74-106); Potassium 4.1 MMOL/L (3.5-5.1); Sodium 150 MMOL/L (136-145)
[2018-03-15] MEDS: SPIRONOLACTONE 25 MG TABLET PO SCH ×2 (08:11→20:24)
[2018-03-15] MEDS: EZETIMIBE 10 MG TABLET PO SCH (08:11)
[2018-03-15] MEDS: SERTRALINE 50 MG TABLET PO SCH (08:11)
[2018-03-15] MEDS: PANTOPRAZOLE 40 MG VIAL IV SCH (08:11)
[2018-03-15] MEDS: MULTIVITAMIN (BEROCCA) TABLET PO SCH (08:11)
[2018-03-15] MEDS: SUCRALFATE 1 GM/10 ML UDCUP PO SCH ×4 (08:11→20:24)
[2018-03-15] MEDS: URSODIOL 300 MG CAPSULE PO SCH ×2 (08:11→20:24)
[2018-03-15] MEDS: FUROSEMIDE 40 MG/5 ML UDCUP PO SCH (08:11)
[2018-03-15] MEDS: ZINC OXIDE PASTE 113 GM TUBE TOP SCH ×2 (08:12→20:24)
[2018-03-15] MEDS: ATENOLOL 25 MG TABLET PO SCH (09:00)
[2018-03-15] MEDS: LEVOFLOXACIN INJ 250 MG in PREMIX 1 EACH IV SCH (15:11)
[2018-03-15] MEDS: MONTELUKAST 10 MG TABLET PO SCH (20:24)
[2018-03-16] MEDS: INSULIN REGULAR 100 UNIT/ML SUBCUT SCH ×4 (00:45→18:13)
[2018-03-16 06:00] LABS: Basophils % 0.4 % (0.0-0.8); Eosinophils # 0.1 10*3/uL (0.0-0.87); Eosinophils % 1.3 % (0.00-10.9); Immature Granulocytes % 0.8 %; Immature Granulocytes Absolute 0.07 #; Lymphocytes # 1.1 10*3/uL (1.4-4.0); Lymphocytes % 11.9 % (21.3-54.2); Mean Corpuscular HGB Conc 29.1 GM/DL (32-36); Mean Corpuscular Hemoglobin 30 PG (27-34); Mean Corpuscular Volume 101.4 FL (87-102); Mean Platelet Volume 12.5 FL (9.6-12.0); Monocytes # 0.8 10*3/uL (0.11-0.8); Monocytes % 8.9 % (1.7-12.7); Neutrophils % 76.7 % (38.7-73.9); Platelet Count 104 T/CUMM (130-400); Red Blood Count 3.69 MC/CUMM (3.8-5.5); Red Cell Distribution Width 17.5 % (9.3-17.3); White Blood Count 9.1 T/CUMM (4-12)
[2018-03-16] MEDS: LEVOTHYROXINE 50 MCG TABLET PO SCH (06:00)
[2018-03-16 06:13] LABS: Calcium 8.9 MG/DL (8.5-10.1); Osmolality,Calculated 311.3 MOS/KG (273-304); Potassium 4.1 MMOL/L (3.5-5.1)
[2018-03-16 06:52] LABS: Hematocrit 37.3 VOL% (35.7-47.0); Hemoglobin 11.1 GM/DL (12.0-16.0)
[2018-03-16] MEDS: SUCRALFATE 1 GM/10 ML UDCUP PO SCH ×4 (08:00→20:31)
[2018-03-16] MEDS: SERTRALINE 50 MG TABLET PO SCH (08:05)
[2018-03-16] MEDS: ZINC OXIDE PASTE 113 GM TUBE TOP SCH ×2 (08:06→20:31)
[2018-03-16] MEDS: SPIRONOLACTONE 25 MG TABLET PO SCH ×2 (08:06→20:31)
[2018-03-16] MEDS: URSODIOL 300 MG CAPSULE PO SCH ×2 (08:06→20:31)
[2018-03-16] MEDS: EZETIMIBE 10 MG TABLET PO SCH (08:06)
[2018-03-16] MEDS: FUROSEMIDE 40 MG/5 ML UDCUP PO SCH (08:06)
[2018-03-16] MEDS: MULTIVITAMIN (BEROCCA) TABLET PO SCH (08:06)
[2018-03-16] MEDS: PANTOPRAZOLE 40 MG VIAL IV SCH (08:06)
[2018-03-16] MEDS: ATENOLOL 25 MG TABLET PO SCH (12:05)
[2018-03-16] MEDS: LEVOFLOXACIN INJ 250 MG in PREMIX 1 EACH IV SCH (15:07)
[2018-03-16] MEDS: MONTELUKAST 10 MG TABLET PO SCH (20:31)
[2018-03-17] MEDS: INSULIN REGULAR 100 UNIT/ML SUBCUT SCH ×4 (00:07→18:15)
[2018-03-17 04:34] LABS: Prealbumin 11.1 MG/DL (20-40)
[2018-03-17 04:46] LABS: Calcium 9.5 MG/DL (8.5-10.1); Osmolality,Calculated 309.6 MOS/KG (273-304); Potassium 4.5 MMOL/L (3.5-5.1)
[2018-03-17] MEDS: LEVOTHYROXINE 50 MCG TABLET PO SCH (06:18)
[2018-03-17] MEDS: SUCRALFATE 1 GM/10 ML UDCUP PO SCH ×4 (08:07→20:29)
[2018-03-17] MEDS: FUROSEMIDE 40 MG/5 ML UDCUP PO SCH ×2 (08:35→15:52)
[2018-03-17] MEDS: PANTOPRAZOLE 40 MG VIAL IV SCH (10:41)
[2018-03-17] MEDS: URSODIOL 300 MG CAPSULE PO SCH ×2 (10:42→20:30)
[2018-03-17] MEDS: EZETIMIBE 10 MG TABLET PO SCH (10:42)
[2018-03-17] MEDS: MULTIVITAMIN (BEROCCA) TABLET PO SCH (10:42)
[2018-03-17] MEDS: ATENOLOL 25 MG TABLET PO SCH (10:42)
[2018-03-17] MEDS: SPIRONOLACTONE 25 MG TABLET PO SCH ×2 (10:42→20:31)
[2018-03-17] MEDS: ZINC OXIDE PASTE 113 GM TUBE TOP SCH ×2 (10:42→20:31)
[2018-03-17] MEDS: SERTRALINE 50 MG TABLET PO SCH (10:42)
[2018-03-17] MEDS: MONTELUKAST 10 MG TABLET PO SCH (20:30)
[2018-03-18] MEDS: INSULIN REGULAR 100 UNIT/ML SUBCUT SCH ×2 (00:19→06:35)
[2018-03-18 06:04] VITALS: BP 124/49
[2018-03-18] MEDS ORDERED: FUROSEMIDE 40 MG/4 ML VIAL IV SCH (08:00)
[2018-03-18] MEDS: PANTOPRAZOLE 40 MG VIAL IV SCH (09:32)
[2018-03-18] MEDS: SUCRALFATE 1 GM/10 ML UDCUP PO SCH ×2 (09:33→11:26)
[2018-03-18] MEDS: EZETIMIBE 10 MG TABLET PO SCH (09:33)
[2018-03-18] MEDS: SPIRONOLACTONE 25 MG TABLET PO SCH (09:33)
[2018-03-18] MEDS: ZINC OXIDE PASTE 113 GM TUBE TOP SCH (09:33)
[2018-03-18] MEDS: URSODIOL 300 MG CAPSULE PO SCH (09:34)
[2018-03-18] MEDS: ATENOLOL 25 MG TABLET PO SCH (09:34)
[2018-03-18] MEDS: LEVOTHYROXINE 50 MCG TABLET PO SCH (09:34)
[2018-03-18] MEDS: MULTIVITAMIN (BEROCCA) TABLET PO SCH (09:34)
[2018-03-18] MEDS: SERTRALINE 50 MG TABLET PO SCH (09:34)
== END 2018-03-18 12:55 | DRG 186 ==
LOC: N.ED 11:55 → SUATTDRO 15:00 → N.EDINP 15:00 → N.3E 19:06 → N.CC 03-07 02:46
PROVIDERS: ADMIT Internal Medicine Geriatric Medicine; ATTEND Family Medicine